=== PATIENT | female | born 1985 | race Caucasian/White ===

== ENCOUNTER → 2017-03-27 15:27 | Outpatient (CLI) | payer SELFPAY ==
[2017-03-27 18:50] LABS: Group B Strep DNA By PCR Negative (Negative); Internal Control PASS; Probe Check PASS; Specimen Processing Control PASS
== END ==
PROVIDERS: Visit Provider Obstetrics & Gynecology
DX: Z36.85 Encounter for antenatal screening for Streptococcus B (principal)
CPT/HCPCS: 87081; 87653

== ENCOUNTER 2017-04-21 20:30 | Inpatient (IN) | payer SELFPAY ==
[2017-04-21 20:55] VITALS: BMI 28.4
[2017-04-21] MEDS: Lactated Ringers 1,000 ML 50 ML IV ×2 (21:10→22:09)
[2017-04-21 21:25] LABS: Hematocrit 33.4 % (37-47); Hemoglobin 11.3 g/dl (12.0-15.0); Mean Corp Hgb Conc 33.8 g/gl (32-36); Mean Corpuscular Hgb 31.7 pg (27.0-32.0); Mean Corpuscular Volume 93.8 fL (81-99); Mean Platelet Vol. 8.9 fl (6.2-12.0); Platelet Count 207 K/mm3 (150-450); RBC Distribution Width CV 13.4 % (11.6-14.6); RBC Distribution Width SD 45.9 fl (35.1-43.9); Red Blood Count 3.56 M/mm3 (4.2-5.4); Scan Indicated on CBC? Y/N NO; White Blood Count 9.1 K/mm3 (4.4-11.0)
[2017-04-21] MEDS: fentaNYL-bupivacaine (epidural) 100 ML BAG EPIDURAL (22:53)
[2017-04-22] MEDS: Oxytocin 30 units/NS 500 ml 30 UNITS/500 ML IV.SOLN IV (01:03)
[2017-04-22] MEDS: Lactated Ringers 1,000 ML 50 ML IV ×3 (02:34→12:28)
[2017-04-22] MEDS: fentaNYL-bupivacaine (epidural) 100 ML BAG EPIDURAL ×3 (03:04→13:13)
--- NOTE | 2017-04-22 08:36 | PCM.PROGNOTE ---
Subjective: Comfortable with epidural. Objective: Afeb VSS. FHR overall Cat 1 with few variable decelerations but not deep.. - Physical Exam General: Alert, Oriented x3, Cooperative, No apparent distress Lungs: Clear to auscultation, Normal air movement Cardiovascular: Regular rate, Regular Rhythm Abdomen: Soft, Non Tender, Non-Distended, Gravid, Appropriate for Gestational Age Extremities: No edema, No Calf Tenderness Skin: No rashes Psych/Mental Status: Normal Affect Comment: CE 6-7 70% -2 Weight: 145 lb 8.081 oz Body Mass Index (BMI) 28.4 Intake and Output for Last 24 Hours 04/20/17 04/21/17 04/22/17 23:59 23:59 23:59 Intake Total 3990 / 3990 Output Total 1900 / 1900 Balance 2089 / 2089 Laboratory Tests Past 24 Hrs 04/21/17 04/21/17 21:05 21:05 WBC 9.1 RBC 3.56 L Hgb 11.3 L Hct 33.4 L MCV 93.8 MCH 31.7 MCHC 33.8 RDW 13.4 RDW Differential 45.9 H Plt Count 207 MPV 8.9 Blood Type O POSITIVE Antibody Screen NEGATIVE Medical Necessity - Tobacco Use Smoking Status: Never smoker Tobacco Use: Non-smoker Assessment/Plan SROM yesterday at 1630. Labor augmented by pitocin. Now making some cervical change. Expect .
--- NOTE | 2017-04-22 12:25 | PCM.PN.OB ---
Subjective: Now more comfortable since epidural redosed. Objective: Afeb VSS. FHR tracing now Cat 1. - Physical Exam General: Alert, Oriented x3, Cooperative, No apparent distress Lungs: Clear to auscultation, Normal air movement Cardiovascular: Regular rate, Regular Rhythm Abdomen: Soft, Non Tender, Non-Distended, Gravid, Appropriate for Gestational Age Comment: CE anterior lip 0 station +1 with pushing Weight: 145 lb 8.081 oz Body Mass Index (BMI) 28.4 Intake and Output for Last 24 Hours 04/20/17 04/21/17 04/22/17 23:59 23:59 23:59 Intake Total 3990 / 3990 Output Total 1900 / 1900 Balance 2089 / 2089 Laboratory Tests Past 24 Hrs 04/21/17 04/21/17 21:05 21:05 WBC 9.1 RBC 3.56 L Hgb 11.3 L Hct 33.4 L MCV 93.8 MCH 31.7 MCHC 33.8 RDW 13.4 RDW Differential 45.9 H Plt Count 207 MPV 8.9 Blood Type O POSITIVE Antibody Screen NEGATIVE Medical Necessity - Tobacco Use Smoking Status: Never smoker Tobacco Use: Non-smoker Assessment/Plan Has now progressed to FD. Now than pitocin is off FHR tracing improved with fewer decelerations during contractions. Will try pushing past anterior lip in 20-30 minutes.
[2017-04-22] MEDS: Oxytocin 30 units/NS 500 ml 30 UNITS/500 ML IV.SOLN 334 UNITS IV (15:00)
--- NOTE | 2017-04-22 15:13 | PCM.OB.VAG ---
- Problem List (1) Active labor at term Status: Acute Vaginal Delivery Maternal Presentation: Active Labor Presents at 39w6d ega with SROM at 1630 on 04/21/17. Fluid reported clear. Uncomplicated . Amniotic Membrane Rupture Type: Spontaneous at home Rupture of Membrane time: 1630 Amniotic Fluid Description: Clear Final ALEXANDR: 04/23/17 Final ALEXANDR Source: US <20 weeks Gestational age: 39 Weeks and 6 Days Date of Procedure: 04/22/17 Pre-Operative Diagnosis: Labor Post-Operative Diagnosis: same Surgery/ Procedure Performed: Spontaneous Vaginal Delivery, Vacuum Assisted Vaginal Delivery Anesthesiologist: Preston Viera Type of Anesthesia: Epidural Description of Procedure: Crystal dilated slowly from 2-3 cm to 6-7 cm then seemed to arest but then over 5 hours progressed to 9cm-anterior lip. With pushing efforts I was able to reduce the cervix but the cervix would return by the next contraction. Although the vertex was above +2 station decision was made to apply to Kiwi vacuum to apply gentle traction to allow the head to pass the cervix. Over one contraction with pushing efforts the head was delivered to the perineum. The Kiwi was removed and with pushing during the next contraction the vertex was delivered. There was a tight nuchal cord which was clamped and cut prior to delivery. The remainder of the delivery was unremarkable. The Placenta was delivered spontaneously intact with a centrally located 3VC. The uterus contracted well after delivery. Inspection revealed an intact cervix, upper and lower vagina, and perineum. Presentation: Vertex Placental Delivery Description: Spontaneous Placenta Disposition: [facility] Percentage of Placenta Abruption: 0 Cord Vessel Description: 3 Vessels Cord Entanglement: Around neck x 1, tight Drain: Sloan to straight drain Estimated Blood Loss: 200cc A gender: Female (1 minute): 8 (5 minute): 9 Episiotomy Description: None Laceration: None Medications given after delivery: IV Pitocin Complications: None
--- NOTE | 2017-04-22 15:24 | DCINST_ITS ---
Discharge Diet: No Restrictions Discharge Activity: Return to Normal Activity, May Drive, May Shower Return to work on:: 06/22/17 May shower in (days): 0 May resume sexual activity in: 4-6 weeks Call your doctor if your incision/area has: Sudden Increased Bleeding, Increased Pain/ Swelling, Increased Redness, Foul Smelling Discharge Call your doctor if you observe: Fever of 101 or Higher, Inability to urinate, Inability to have a bowel movement, Using more than one pad per hour, Shortness of breath, Chest pain, Calf discomfort, Uncontrolled pain Cleanse incision/area with: Soap & Water Additional Instructions: If you experience any of the following, contact your healthcare provider. * Bleeding that soaks a pad every hour for 2 hours * Fever 100.4 or higher * Unrelieved incision or abdominal pain * Swelling, redness, discharge or bleeding from your incision or episiotomy site * Your incision begins to separate * Problems urinating (including inability to urinate or burning while urinating) . * Visual changes * Severe headache * Flu-like symptoms * Pain or redness in one of both of your breasts * Pain, warmth, tenderness or swelling in your legs, especially the calf area * Frequent nausea and vomiting * Symptoms of depression or anxiety If you experience any of the following, call 911 or go to the nearest Emergency Room. * Chest pain * Problems breathing * Seizure activity * Partial or complete paralysis of a body part, slurred speech, weakness or drooping of the face, or a sudden inability to walk or hold your balance Allergies/Adverse Reactions: Allergies No Known Allergies Allergy (Verified 04/21/17 20:56) Medications to take at Discharge Vits [Prenatabs FA ] 1 tablet PO DAILY 04/21/17 Ibuprofen [Motrin] 800 mg PO TID PRN PRN #30 tab 04/22/17 The following prescriptions were given: Ibuprofen [Motrin] 800 mg PO TID PRN PRN #30 tab PRN Reason: pain or cramping Please Follow Up With: Jeana Hidalgo MD When: 6 weeks Primary Care Physician: Chavez Lora MD [Primary Care Provider] - Proposed Discharge Date: 04/24/17
[2017-04-22] MEDS: Oxytocin 30 units/NS 500 ml 30 UNITS/500 ML IV.SOLN 167 UNITS IV (15:30)
--- NOTE | 2017-04-22 16:32 | NURSING ---
Pt never was complete dilation, Dr. Aleman used Kiwi with contraction to get baby past anterior lip x1 pull. And pt pushed baby the rest of the way until delivery.
[2017-04-22] MEDS: Ibuprofen 600 MG Tablet PO ×2 (16:38→22:31)
[2017-04-22] MEDS: 0.9% Saline Lock 10 ML Syringe IV (16:39)
[2017-04-22 17:00] VITALS: BP 126/67; PULSE 87; RESP 18; TEMP 37.1
[2017-04-22] MEDS: Acetaminophen 500 MG Tablet 1000 MG PO (19:16)
[2017-04-22 20:15] VITALS: BP 113/71; PULSE 94; RESP 18; TEMP 36.7; O2SAT 100
[2017-04-22 23:36] VITALS: BP 125/50; PULSE 75; RESP 18; TEMP 36.8; O2SAT 100
[2017-04-23] MEDS: Acetaminophen 500 MG Tablet 1000 MG PO ×2 (02:16→10:53)
[2017-04-23 05:12] VITALS: BP 120/63; PULSE 75; RESP 18; TEMP 36.7; O2SAT 100
[2017-04-23] MEDS: Ibuprofen 600 MG Tablet PO ×2 (06:41→16:55)
--- NOTE | 2017-04-23 07:12 | PCM.PN.OB ---
Patient Problems: Active and Suspected Problems Active labor at term (Acute) Subjective: Some soreness and cramping but not severe. Bleeding light. Breast feeding. Objective: Afeb VSS - Physical Exam General: Alert, Oriented x3, Cooperative, No apparent distress Lungs: Clear to auscultation, Normal air movement Cardiovascular: Regular rate, Regular Rhythm Abdomen: Soft, Non Tender, Non-Distended, - - Fundus nontender Extremities: No edema Skin: No rashes Neurological: Neuro grossly intact Psych/Mental Status: Normal Affect Comment: Lochia normal Vital Signs Temp Pulse Resp BP Pulse Ox 98.0 F 75 18 120/63 100 04/23/17 05:12 04/23/17 05:12 04/23/17 05:12 04/23/17 05:12 04/23/17 05:12 Oxygen Delivery Method Room Air Weight: 145 lb 8.081 oz Body Mass Index (BMI) 28.4 Intake and Output for Last 24 Hours 04/21/17 04/22/17 04/23/17 23:59 23:59 23:59 Intake Total 6682 / 6682 Output Total 6000 / 6000 900 / 900 Balance 682 / 682 -900 / -900 Medical Necessity - Tobacco Use Smoking Status: Never smoker Tobacco Use: Non-smoker Assessment/Plan Active and Suspected Problems Active labor at term (Acute) Doing well on PP day#1. May consider discharge home later today. Home going instructions and warnings given.
--- NOTE | 2017-04-23 07:14 | PCM.DC.SUM ---
Discharge Date and Diagnosis - Problem List Patient Problems: Active and Suspected Problems Active labor at term (Acute) Date of Admission: 04/21/17 Date of Discharge: 04/23/17 - Primary Discharge Diagnosis Active and Suspected Problems Active labor at term (Acute) Hospital Course and Treatment Consultations 04/21/17 20:57 Consult: Anesthesia Routine Comment: Reason For Exam: LABOR Operations: None Procedures: - - Epidural, Summary of Care Provided: The patient is a 31 year old F admitted at 39w6d ega with SROM. Made slow progress to FD then pushed and with minor assistance with the Kiwi delivered a live female without complication. Post course unremarkable. Discharged home on PP day#1.[] Discharge Diet: No Restrictions Discharge Activity: Return to Normal Activity, May Drive, May Shower Return to work on:: 06/22/17 May shower in (days): 0 May resume sexual activity in: 4-6 weeks Call your doctor if your incision/area has: Sudden Increased Bleeding, Increased Pain/ Swelling, Increased Redness, Foul Smelling Discharge Call your doctor if you observe: Fever of 101 or Higher, Inability to urinate, Inability to have a bowel movement, Using more than one pad per hour, Shortness of breath, Chest pain, Calf discomfort, Uncontrolled pain Cleanse incision/area with: Soap & Water Home Medications: Medications to take at Discharge Vits [Prenatabs FA ] 1 tablet PO DAILY 04/21/17 Ibuprofen [Motrin] 800 mg PO TID PRN PRN #30 tab 04/22/17 Following Prescrptions Were Given to Patient: Ibuprofen [Motrin] 800 mg PO TID PRN PRN #30 tab PRN Reason: pain or cramping Primary Care Physician: Chavez Lora MD [Primary Care Provider] - Please Follow Up With: Jeana Hidalgo MD When: 6 weeks Disposition: Home Minutes spent on discharge:: 15 Patient Condition:: Good Medical Necessity - Tobacco Use Smoking Status: Never smoker Tobacco Use: Non-smoker Meaningful Use Info Meaningful Use Diagnoses (Choose all that apply): None applicable
[2017-04-23 08:20] VITALS: BP 108/58; PULSE 78; RESP 16; TEMP 36.2; O2SAT 95
[2017-04-23] MEDS: Prenatal Vits Tablet 1 TABLET PO (09:33)
[2017-04-23 11:54] VITALS: BP 120/57; PULSE 77; RESP 16; TEMP 36.3; O2SAT 98
[2017-04-23 13:01] LABS: Hematocrit 33.7 % (37-47); Hemoglobin 11.3 g/dl (12.0-15.0); Mean Corp Hgb Conc 33.5 g/gl (32-36); Mean Corpuscular Hgb 32.3 pg (27.0-32.0); Mean Corpuscular Volume 96.3 fL (81-99); Mean Platelet Vol. 9.1 fl (6.2-12.0); Platelet Count 234 K/mm3 (150-450); RBC Distribution Width CV 13.4 % (11.6-14.6); RBC Distribution Width SD 44.6 fl (35.1-43.9); White Blood Count 15.1 K/mm3 (4.4-11.0)
[2017-04-23 13:06] LABS: Scan Indicated on CBC? Y/N NO
[2017-04-23 16:41] VITALS: BP 130/58; PULSE 91; RESP 18; TEMP 37.3; O2SAT 100
== END 2017-04-23 19:55 | disposition home or self-care (01) | DRG 775 ==
PROVIDERS: Admitting Provider Obstetrics & Gynecology; Family Provider Family Medicine; PCP Family Medicine; Visit Provider Obstetrics & Gynecology
DX: O69.1XX0 Labor and delivery complicated by cord around neck, with compression, not applicable or unspecified (principal); O76 Abnormality in fetal heart rate and rhythm complicating labor and delivery; Z37.0 Single live birth; Z3A.39 39 weeks gestation of pregnancy
CPT/HCPCS: 59025; 59050; 76815; 85027; 86850; 86900; 99218; J7120; A4216; G0378

== ENCOUNTER → 2022-02-21 | Outpatient (CLI) | payer SELFPAY ==
[2022-02-27 18:26] LABS: HPV APTIMA, High Risk Negative (Negative)
== END | disposition home or self-care (01) ==
PROVIDERS: PCP Family Medicine; Visit Provider Student in an Organized Health Care Education/Training Program
DX: Z12.4 Encounter for screening for malignant neoplasm of cervix (principal)
CPT/HCPCS: 87624; 88175; G0145

== ENCOUNTER 2024-03-05 20:57 | Emergency (ER) | payer OTHER, SELFPAY ==
[2024-03-05 20:58] VITALS: BP 114/46; PULSE 101; RESP 14; TEMP 36.8; O2SAT 99; BMI 25.4
[2024-03-05 21:46] LABS: Absolute Lymphocyte Count 1.17 X10^3/uL (0.83-4.51); Basophil# 0.04 X10^3/uL; Basophil% 0.3 % (0-1); Eosinophil# 0.06 X10^3/uL; Eosinophils% 0.5 % (0-5); Hematocrit 35.3 % (37-47); Hemoglobin 12.1 g/dL (12.0-15.0); Lymphocyte # 1.17 X10^3/ul (0.83-4.51); Lymphocyte % 9.4 % (19-41); Mean Corp Hgb Conc 34.3 g/dL (32-36); Mean Corpuscular Hgb 30.3 pg (27.0-32.0); Mean Corpuscular Volume 88.3 fL (81-99); Mean Platelet Vol. 9.1 fl (6.2-12.0); Monocyte# 1.09 X10^3/uL; Monocyte% 8.8 % (0-10); NRBC Flagged by Analyzer 0 % (0-5); Neutrophil % 80.3 % (47-70); Platelet Count 211 K/mm3 (150-450); RBC Distribution Width CV 12.3 % (11.6-14.6); RBC Distribution Width SD 39.7 fl (35.1-43.9); White Blood Count 12.5 K/mm3 (4.4-11.0)
[2024-03-05 22:03] LABS: ALB/GLOB Ratio 0.8 RATIO (0.9-2.4); AST(SGOT) 77 U/L (15-37); Alanine Aminotransfer ALT/SGPT 107 U/L (13-56); Albumin, Serum 3.4 g/dL (3.2-5.0); Alkaline Phosphatase 85 U/L (45-117); Anion Gap 7 (5-15); BUN 14 mg/dL (7-18); BUN/Creat Ratio 9.5 RATIO (10-20); Calcium,Total 9.2 mg/dL (8.5-10.1); Chloride 106 mmol/L (98-107); Creatinine, Serum 1.48 mg/dL (0.55-1.02); EST Glomerular Filtration Rate 41 mL/min (>60); Est Glom Filt Rate - Afr Amer 50 mL/min (>60); Estimated Creatinine Clearance 40.59 ml/min; Globulin 4.5 g/dL (2.2-4.2); Glucose 112 mg/dL (74-106); Potassium 3.6 mmol/L (3.5-5.1); Protein, Total 7.9 g/dL (6.4-8.2); Sodium Level 137 mmol/L (136-145)
[2024-03-05 22:32] LABS: Mucous, Urine 0 SEEN /hpf (<or=2+); Red Blood Cells-Urine 0 SEEN /hpf (0-5)
[2024-03-05 22:41] LABS: Color, Urine Yellow (Yellow); Glucose, Dipstick Normal (Normal); Ketone-Dipstick 5 mg/dl (Negative); Leukocyte Esterase-Dipstick 25 /ul (Negative); Nitrite-Dipstick Negative (Negative); Occult Blood-Urine Negative /ul (Negative); Protein-Dipstick 15 mg/dl (Negative); Specific Gravity, Urine 1.005 (1.002-1.030); Urine Bilirubin Dipstick Negative (Negative); Urine Clarity Clear (Clear); Urine Urobilinogen Normal (Normal)
--- NOTE | 2024-03-05 22:47 | CT_ITS ---
PROCEDURE: ABDOMEN/PELVIS WITHOUT CONT REASON FOR EXAM: Left flank pain radiating to the left lower quadrant. Nausea and vomiting. TECHNIQUE: Axial CT images of the abdomen and pelvis was performed without IV contrast enhancement. Sagittal an d coronal reconstructed images were performed for better visualization of the horizontal structures. Study not targeted for the abdominal viscera. COMPARISON: None. FINDINGS: Lung bases: Trace atelectasis within the lung bases. Liver: Is mildly enlarged measuring 22.0 cm in the CC dimension. Gallbladder: No calcified gallstones are identified. Spleen: Unenhanced spleen appears within normal limits. Pancreas: No large pancreatic masses or peripancreatic inflammatory changes are seen. Adrenals: No adrenal masses are identified. Kidneys: Numerous nonobstructive renal calculi identified bilaterally, largest on the right within th e superior pole measures up to 7 mm and on the left, inferior pole measures 5 mm. Obstructing calculus within the proximal left ureter measures 7 x 5.5 mm, with associated moderate pelvocaliectasis and moderate hydronephrosis of the left kidney. No additio nal obstructing calculi seen.. Bladder: Partially decompressed. No bladder calculi are seen. Reproductive Organs: Multilobulated uterus. Bowel: No bowel obstruction is identified. [id number] amounts of fecal retention. Appendix: Normal. No periappendicular inflammatory changes. Lymph nodes: No suspicious lymph node enlargement. Vasculature: Major vascular structures are unremarkable. Peritoneum / Retroperitoneum: No ascites. No free air. Bones: Unremarkable. CT/Abdomen/Pelvis without Cont IMPRESSION: 1. 7 x 5.5 mm obstructing calculus within the proximal left ureter, with associ ated moderate pelvocaliectasis and moderate hydronephrosis of the left kidney. 2. Numerous nonobstructive renal calculi identified, bilaterally, largest on th e right measures up to 7 mm and on the left measures 5 mm. 3. Mild hepatomegaly measuring up to 22.0 cm in the CC dimension. 4. Multilobulated uterus. Suspect uterine fibroids. 5. Additional findings, as detailed above. One or more dose reduction techniques were used (e.g., Automated exposure contr ol, adjustment of the mA and/or kV according to patient size, use of iterative reconstruction technique). Reading Location: [id number]
--- NOTE | 2024-03-05 22:48 | EX.ED.DYSGE1 ---
HPI History of Present Illness Chief Complaint: Flank Pain Informant: patient and spouse/S.O. Narrative Narrative: Presents with spouse for evaluation intermittent left flank pain rating to left lower abdomen since Sunday. Saw her PCP Sunday had outpatient x-rays reported nephrolithiasis, referred to urology Dr. Srivastava to be seen this coming Sunday. No history of kidney stones. No urine symptoms of hematuria dysuria or frequency. However reported feeling feverish with a temp of 101 today she took Motrin 2 hours prior to that. Intermittent nausea none currently. No vomiting or diarrhea. Due to having a fever she came to get evaluated. No worsening pain at this time. No cough. Prior similar symptoms: No PFSH PFSH Medical History no medical history Home Medications ?Medication ?Instructions ?Recorded ?Last Taken ?Type ibuprofen 800 mg tablet 800 mg PO TID PRN PRN pain or 04/22/17 Unknown Rx cramping #30 tabs ondansetron 4 mg disintegrating 4 mg PO Q8H PRN PRN Nausea #10 tabs 03/06/24 Unknown Rx tablet oxycodone-acetaminophen 5 mg-325 1 tab PO Q6H PRN PRN Pain 3 days 03/06/24 Unknown Rx mg tablet #12 TABLETS tamsulosin 0.4 mg capsule 0.4 mg PO DAILY #7 CAPSULES 03/06/24 Unknown Rx Allergy/AdvReac Type Severity Reaction Status Date / Time No Known Allergies Allergy Verified 03/05/24 21:02 Family History no significant family his Surgical History no surgical history Social History Smoking Status: Never smoker ROS ROS ED Constitutional Constitutional ED: Reports fever(s); Denies chills or sweats ENT ENT ED: Denies sore throat Cardiovascular Cardiovascular: Denies chest pain, leg edema, palpitations or racing heartbeat Respiratory/Chest Respiratory/Chest: Denies cough, dyspnea or dyspnea on exertion Gastrointestinal Gastrointestinal: Reports abdominal pain; Denies diarrhea, nausea or vomiting Genitourinary Genitourinary ED: Denies dysuria, hematuria or urinary frequency Musculoskeletal Musculoskeletal: Reports back pain; Denies extremity pain or neck pain Integumentary Denies rash or wounds Neurologic Neurologic: Denies headache(s), paresthesias or weakness EXAM Physical Exam Const Vital Signs: 03/05/24 20:58 03/05/24 23:00 03/05/24 23:02 Temperature 98.2 F 98.5 F Temperature Source Oral Oral Pulse Rate 101 H 97 Respiratory Rate 14 16 Respiratory Effort Normal Non-Labored Respiratory Pattern Normal Blood Pressure 114/46 L 107/64 Blood Pressure Mean 68 78 Pulse Ox 99 98 Oxygen Delivery Method Room Air 03/06/24 00:00 03/06/24 01:00 03/06/24 02:00 Temperature 98.4 F 98.4 F 98.7 F Temperature Source Oral Oral Oral Pulse Rate 91 103 H 105 H Respiratory Rate 16 14 16 Respiratory Effort Respiratory Pattern Blood Pressure 114/56 L 110/72 105/62 Blood Pressure Mean 75 84 76 Pulse Ox 100 98 97 Oxygen Delivery Method Room Air Room Air Room Air 03/06/24 03:15 Temperature 98 F Temperature Source Pulse Rate 61 Respiratory Rate 16 Respiratory Effort Respiratory Pattern Blood Pressure 125/75 H Blood Pressure Mean 91 Pulse Ox 100 Oxygen Delivery Method Positive well nourished and well developed General Appearance ED: well developed and NAD HEENT Reports moist mucous membranes normocephalic and atraumatic Eyes General Eye ED: Yes normal appearance of both eyes Neck full ROM Chest Wall Chest: Negative for tenderness Resp normal respiratory effort and normal air movement Effort and Inspection: symmetric chest movement; Negative for respiratory distress Cardio regular rate, regular rhythm and no murmurs Peripheral Pulses: pulses 2+ throughout GI normal to inspection, nondistended, normoactive bowel sounds and non-tender Palpation: Negative for guarding or rebound tenderness present Back/Spine no CVA tenderness Extremity normal to inspection General Extremety ED: Negative for edema or tenderness General Extremity: Negative for edema Neuro oriented x3 and no sensory deficits noted Sensorium / Orientation: awake and alert Skin no rashes or lesions noted and no wounds MDM MDM MDM Narrative Medical decision making narrative: Interventions / MDM: Differential diagnosis: Urolithiasis, left renal colic, renal sufficiency Diagnosis considered but do not suspect: N/A My EKG interpretation: N/A Imaging independently reviewed and interpreted by myself: CT abdomen pelvis: 7 mm proximal left ureteral stone with hydronephrosis. External documents reviewed: N/A Test considered but not ordered:N/A ED course: No current pain at this time. Nursing protocol obtain labs noted white count 12.5 creatinine 1.48 with no old for comparison. She is given IV fluids. Will obtain CT scan for further evaluation. Urine with only 25 leukocytes no other findings. Urine culture sent. CT scan with 7 mm proximal left ureteral stone with obstruction. 0035: Reevaluate patient, reports pain is increasing will dose with morphine will start Tamiflu. Will discuss with urology. 0120: Pain controlled at this time. Awaiting callback from urology. 0305: Still waiting for callback from urology who clinically was feeling better. She is nontoxic. Discussed the 7 mm stone less likely the past. She has an appointment on Sunday with urology Dr. Srivastava. 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 I discussed with her we will continue Tamiflu, Percocet as needed Zofran as needed. Plan to keep her follow-up with strict return precautions. Will continue to plan on relaying follow-up if urology calls back. All questions were answered. Re-evaluation: stable Disposition discussed with patient/family/significant other: Patient significant other Case discussed with consulting clinician: N/A This note was generated with [employer] dictation software. It may contain incorrect words, spelling, and punctuation that were not noted in checking the note before signing. Lab Data Attestation: I reviewed the patient's lab results. Labs: Laboratory Results - last 24 hr 03/05/24 03/05/24 03/05/24 21:36 22:25 23:06 WBC 12.5 H RBC 4.00 L Hgb 12.1 Hct 35.3 L MCV 88.3 MCH 30.3 MCHC 34.3 RDW Std Deviation 39.7 RDW Coeff of Karla 12.3 Plt Count 211 MPV 9.1 Immature Gran % (Auto) 0.700 Neut % (Auto) 80.3 H Lymph % (Auto) 9.4 L Dade % (Auto) 8.8 Eos % (Auto) 0.5 Baso % (Auto) 0.3 Absolute Neuts (auto) 10.0 H Absolute Lymphs (auto) 1.17 Nucleated RBC % 0 Sodium 137 Potassium 3.6 Chloride 106 Carbon Dioxide 24.0 Anion Gap 7 BUN 14 Creatinine 1.48 H Estim Creat Clear Calc 40.59 Est GFR (MDRD) Af Amer 50 L Est GFR (MDRD) Non-Af 41 L BUN/Creatinine Ratio 9.5 L Glucose 112 H Calcium 9.2 Total Bilirubin 0.50 AST 77 H ALT 107 H Alkaline Phosphatase 85 Total Protein 7.9 Albumin 3.4 Globulin 4.5 H Albumin/Globulin Ratio 0.8 L Urine Color Yellow Urine Clarity Clear Urine pH 6.0 Ur Specific [place] 1.005 Urine Protein 15 H Urine Glucose (UA) Normal Urine Ketones 5 H Urine Occult Blood Negative Urine Nitrite Negative Urine Bilirubin Negative Urine Urobilinogen Normal Ur Leukocyte Esterase 25 H Urine RBC 0 SEEN Urine WBC 0-5 SEEN Ur Squamous Epith Cells 0-5 SEEN Urine Bacteria RARE Urine Mucus 0 SEEN Urine Test Negative Radiography Diagnostic Testing: Clinical Impression(s) from Imaging Studies Abdomen/Pelvis CT 03/05/24 22:47 IMPRESSION: 1. 7 x 5.5 mm obstructing calculus within the proximal left ureter, with associated moderate pelvocaliectasis and moderate hydronephrosis of the left kidney. 2. Numerous nonobstructive renal calculi identified, bilaterally, largest on the right measures up to 7 mm and on the left measures 5 mm. 3. Mild hepatomegaly measuring up to 22.0 cm in the CC dimension. 4. Multilobulated uterus. Suspect uterine fibroids. 5. Additional findings, as detailed above. One or more dose reduction techniques were used (e.g., Automated exposure control, adjustment of the mA and/or kV according to patient size, use of iterative reconstruction technique). Reading Location: [facility] Discharge Plan Triage Chief Complaint: Flank Pain Other Complaint: Fever ED Provider: Shekhar Holland Dx/Rx/DC Orders Clinical Impression: Urolithiasis, Renal insufficiency, Kidney stone on left side Instructions: ED Kidney Stone with Pain Prescriptions: New oxycodone-acetaminophen 5-325 mg tablet 1 tab PO Q6H PRN PRN (Reason: Pain) 3 Days Qty: 12 0RF ondansetron 4 mg tablet,disintegrating 4 mg PO Q8H PRN PRN (Reason: Nausea) Qty: 10 0RF tamsulosin 0.4 mg capsule 0.4 mg PO DAILY Qty: 7 0RF No Action ibuprofen 800 MG tablet 800 mg PO TID PRN PRN (Reason: pain or cramping) Qty: 30 1RF Primary Care Provider: Tammi Romo Referrals: James Srivastava MD [Med Staff - Active Staff] - Keep Lakia appointment Chavez Lora MD [Non-Staff] - Activity Restrictions/Additional Instructions: You have a 7 mm proximal stone on the left side. Your creatinine 1.48. Avoid ibuprofen at this time. Use Zofran and Percocet as needed. Take Flomax daily. Follow-up with Dr. Serrano as scheduled. If you develop worsening symptoms not controlled with medications, return to ED for reevaluation. Print Language: Ukrainian Disposition Disposition: Home, Self Care Discharge Date/Time: 03/06/24 03:19
[2024-03-05] MEDS: 0.9% Normal Saline (1000mL) 1,000 ML 999 ML IV (22:58)
[2024-03-05 23:00] VITALS: BP 107/64; PULSE 97; RESP 16; TEMP 36.9; O2SAT 98
[2024-03-05 23:24] LABS: Internal QC Validated? YES +Cl - CLEAR BKGD; Pregnancy, Urine Negative Negative
[2024-03-05 23:28] LABS: Bacteria RARE /hpf (None Seen); Squamous Epithelial Cells - UA 0-5 SEEN /hpf (5-10); White Blood Cells 0-5 SEEN /hpf (0-5)
[2024-03-06] VITALS: BP 114/56; PULSE 91; RESP 16; TEMP 36.9; O2SAT 100
[2024-03-06] MEDS: Tamsulosin HCl 0.4 MG Capsule PO (00:46)
[2024-03-06] MEDS: Morphine 4 MG/ML Syringe IV (00:46)
[2024-03-06 01:00] VITALS: BP 110/72; PULSE 103; RESP 14; TEMP 36.9; O2SAT 98
[2024-03-06 02:00] VITALS: BP 105/62; PULSE 105; RESP 16; TEMP 37.1; O2SAT 97
[2024-03-06 03:15] VITALS: BP 125/75; PULSE 61; RESP 16; TEMP 36.6; O2SAT 100
== END 2024-03-06 03:19 | disposition home or self-care (01) ==
PROVIDERS: Emergency Provider Emergency Medicine; Visit Provider Emergency Medicine
DX: N13.2 Hydronephrosis with renal and ureteral calculous obstruction (principal); R50.9 Fever, unspecified
CPT/HCPCS: 74176; 80053; 81001; 81025; 85025; 87086; 96361; 96374; 99285; A4216

== ENCOUNTER 2024-03-07 16:42 | Observation (INO) | payer SELFPAY ==
[2024-03-07 16:22] VITALS: BMI 25.0
[2024-03-07 17:01] VITALS: BP 113/67; PULSE 100; RESP 18; TEMP 37.6; O2SAT 96
[2024-03-07] MEDS: Lactated Ringers 1,000 ML 125 ML IV (17:41)
[2024-03-07 18:02] LABS: Absolute Lymphocyte Count 0.91 X10^3/uL (0.83-4.51); Basophil# 0.03 X10^3/uL; Basophil% 0.4 % (0-1); Eosinophil# 0.03 X10^3/uL; Eosinophils% 0.4 % (0-5); Hematocrit 32.2 % (37-47); Lymphocyte # 0.91 X10^3/ul (0.83-4.51); Lymphocyte % 11.9 % (19-41); Mean Corp Hgb Conc 34.2 g/dL (32-36); Mean Corpuscular Hgb 30.2 pg (27.0-32.0); Mean Corpuscular Volume 88.5 fL (81-99); Monocyte% 9.1 % (0-10); NRBC Flagged by Analyzer 0 % (0-5); Neutrophil # 5.97 X10^3/uL (2.7-7.7); Neutrophil % 77.9 % (47-70); Platelet Count 212 K/mm3 (150-450); RBC Distribution Width SD 39.1 fl (35.1-43.9); Red Blood Count 3.64 M/mm3 (4.2-5.4); White Blood Count 7.7 K/mm3 (4.4-11.0)
[2024-03-07 18:10] LABS: Anion Gap 6 (5-15); BUN 7 mg/dL (7-18); BUN/Creat Ratio 5.9 RATIO (10-20); Calcium,Total 9.1 mg/dL (8.5-10.1); Chloride 102 mmol/L (98-107); Creatinine, Serum 1.19 mg/dL (0.55-1.02); EST Glomerular Filtration Rate 53 mL/min (>60); Est Glom Filt Rate - Afr Amer 65 mL/min (>60); Glucose 159 mg/dL (74-106); Potassium 2.9 mmol/L (3.5-5.1); Sodium Level 136 mmol/L (136-145)
[2024-03-07] MEDS: 0.9% Saline Lock 10 ML Syringe IV (19:06)
[2024-03-07] MEDS: Ketorolac 15 MG/ML Vial IV (19:06)
[2024-03-07 21:45] VITALS: BMI 25.1
[2024-03-07 22:36] VITALS: BP 107/69; PULSE 92; RESP 16; TEMP 37.3; O2SAT 96
[2024-03-07] MEDS: Acetaminophen 500 MG Tablet 1000 MG PO (22:39)
[2024-03-07] MEDS: Cefazolin 1 GM/50 ML BAG IV (22:39)
[2024-03-08] VITALS (12 sets, daily range): BP systolic 102–120; BP diastolic 51–69; PULSE 74–91; RESP 16–18; TEMP 36.4–37.2; O2SAT 96–98
[2024-03-08 00:01] LABS: Internal QC Validated? YES +Cl - CLEAR BKGD; Pregnancy, Urine Negative Negative
[2024-03-08] MEDS: Ketorolac 15 MG/ML Vial IV (03:56)
[2024-03-08] MEDS: Cefazolin 1 GM/50 ML BAG IV (06:41)
[2024-03-08] MEDS: Acetaminophen 500 MG Tablet 1000 MG PO ×2 (06:43→14:51)
--- NOTE | 2024-03-08 07:58 | PCM.PRE.AN2 ---
ASA Classification* ASA Classification ASA Classification: 2 Assessment & Plan Anesthesia* Anesthesia Assessment Anesthesia Assessment: Discussed sedation and/or anesthesia options, risks, benefits, and alternatives with patient/parents/legal guardian/POA. Questions invited. The patient/parents/legal guardian/POA seems to understand and agrees to proceed with anesthesia plan. Reviewed the physical assessment, medical history, allergy history and patient home medications list prior to surgery/procedure/anesthetic and documented any changes. Performed airway and anesthesia risk assessments. Anesthesia Type Anesthesia Type: General Anesthesia Focused Assessment* Temperature: 98.2 F Pulse Rate: 83 Blood Pressure: 118/64 Respiratory Rate: 16 Pulse Ox: 98 Airway Assessment Mouth opens: >3 cm Mallampati Score: II Focused Labs Anesthesia Preop lab: CBC WBC 7.7 K/mm3 (4.4-11.0) 03/07/24 17:39 03/07/24 RBC 3.64 M/mm3 (4.2-5.4) L 03/07/24 17:39 03/07/24 Hgb 11.0 g/dL (12.0-15.0) L 03/07/24 17:39 03/07/24 Hct 32.2 % (37-47) L 03/07/24 17:39 03/07/24 Plt Count 212 K/mm3 (150-450) 03/07/24 17:39 03/07/24 CHEMISTRY Potassium 2.9 mmol/L (3.5-5.1) L 03/07/24 17:39 03/07/24 Sodium 136 mmol/L (136-145) 03/07/24 17:39 03/07/24 BUN 7 mg/dL (7-18) 03/07/24 17:39 03/07/24 Creatinine 1.19 mg/dL (0.55-1.02) H 03/07/24 17:39 03/07/24 Glucose 159 mg/dL (74-106) H 03/07/24 17:39 03/07/24 TSH 0.72 uIU/mL (0.358-3.74) 11/17/16 12:10 11/17/16 COAG Urine Test Negative Negative 03/07/24 23:06 03/07/24 Pre-Assessment Diagnosis/Proposed Procedure Planned Operative Procedure(s): Cystoscopy, stent placement, possible laser stone Anesthesia History Anesthesia History - pharmacology associate: Anesthesia History - pharmacology associate Hx Hospitalization Any Problems With Anesthesia No 03/07/24 21:45 Cholinesterase deficiency No 03/07/24 21:45 You/Your Family Experience No 03/07/24 21:45 fever (hyperthermia) with Relationship Recent Exposure to Contagious No 03/07/24 21:45 Disease Does patient have nerve No 03/07/24 21:45 stimulator Patient instructed to have device shut off --Does patient have Pacemaker No 03/07/24 21:45 or ICD? When Was Last Pacemaker Check QUESTION #4 FULL TEXT: You/Your Family Experience fever (hyperthermia) with Anesthesia Last Oral Intake Last Oral intake: Last Oral Intake NPO since 00:00 03/07/24 21:45 Meds taken in AM with sips of Yes 03/07/24 21:45 water? Meds patient instructed to Tylenol 1000 mg 03/07/24 21:45 take am of surgery 0640 PONV PONV - pharmacology associate: PONV - pharmacology associate Female HX of Motion Sickness HX of N/V After Surgery Non-Smoker Duration of Surgery greater than 60 minutes Number of Risk Factors PONV Score Height & Weight Height & Weight: Anesthesia: Height & Weight Height 4 ft 11.84 in 03/07/24 21:45 Weight: 58 kg 03/07/24 21:45 Body Mass Index (BMI) 25.1 03/07/24 21:45 Respiratory Assessment Respiratory Assessment - pharmacology associate: Respiratory Tract Infection Hx - pharmacology associate Hx Respiratory Tract Infection No 03/07/24 21:45 STOP Sleep Apnea STOP Sleep Apnea - pharmacology associate: STOP Sleep Apnea - pharmacology associate Hx Hypertension No 03/07/24 16:26 Hx Sleep Apnea No 03/07/24 16:26 CPAP BIPAP Do you snore loudly (louder No 03/07/24 16:26 than talking or can be heard Do you often feel tired/ No 03/07/24 16:26 fatigued/ sleepy during daytime? Has anyone observed you stop No 03/07/24 16:26 breathing during sleep? STOP Results Negative 03/07/24 16:26 QUESTION #5 FULL TEXT : Do you snore loudly (louder than talking or can be heard through closed doors)? Tobacco Use History Tobacco Use History - pharmacology associate: Tobacco Use History - pharmacology associate Tobacco Use Smoking Status Never smoker 03/07/24 16:26 Hx Tobacco Use No 03/07/24 16:26 Years Smoking Packs Smoked per Day Smoking Cessation Date was within the last 15 years Hx Smoking Cessation Date Hx Smoking Cessation Counseling Hematologic Medial History Hematologic Hx - pharmacology associate: Hematologic Medical Hx - auto roller Hx of Blood Transfusion Yes 03/07/24 16:26 Hx of Transfusion in last 3 No 03/07/24 16:26 Months Date of Last Transfusion (if within last 3 months) Ever experience any problems No 03/07/24 16:26 with transfusion(s)? 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 confused, unrespo /Reproduction History /Reproductive History - pharmacology associate: /Reproductive Hx- pharmacology associate Hx Now No 03/07/24 21:45 Gestational Age (in weeks): EDC: Hx Hx Para Hx Section SAB No 03/07/24 21:45 Active Medications Active Medications: Current Medications Generic Name Dose Route Start Last Admin Trade Name Freq PRN Reason Stop Dose Admin Acetaminophen 1,000 mg 03/07/24 22:00 03/08/24 06:43 Acetaminophen 500 Mg Tablet PO 1,000 mg Q8 KOBE Administration Sodium Chloride 100 mls @ 15 mls/hr 03/07/24 16:26 IV .Q6H40M PRN Saline Flush Sodium Chloride 100 mls @ 15 mls/hr 03/07/24 16:26 IV .Q6H40M PRN Additional IVPB Infusion Cefazolin Sodium 1 gm in 50 mls @ 100 mls/hr 03/07/24 22:00 03/08/24 06:41 IV 100 mls/hr Q8 KOBE Administration Ketorolac Tromethamine 15 mg 03/07/24 16:42 03/08/24 03:56 Ketorolac 15 Mg/Ml Vial IV 03/12/24 16:46 15 mg Q6H PRN PRN Administration Pain Score 1-10 Morphine Sulfate 2 - 4 mg 03/07/24 16:42 Morphine 2 Mg/Ml Syringe IV Q3H PRN PRN Pain Score 6-10 Ondansetron HCl 4 mg 03/07/24 16:42 Ondansetron 4 Mg/2 Ml Vial IV Q8H PRN PRN NAUSEA/VOMITING Oxycodone HCl 10 mg 03/07/24 16:42 Oxycodone 5 Mg Tablet PO Q4H PRN PRN Pain Score 4-10 Sodium Chloride 10 - 40 ml 03/07/24 16:26 03/07/24 19:06 0.9% Saline Lock 10 Ml Syringe IV 10 ml UD PRN Administration SALINE FLUSH PFSH Medical History Kidney stones Kidney disease Non-smoker Home Medications ?Medication ?Instructions ?Recorded ?Last Taken ?Type oxycodone-acetaminophen 5 mg-325 1 tab PO Q6H PRN PRN Pain 3 days 03/06/24 Unknown Rx mg tablet #12 TABLETS tamsulosin 0.4 mg capsule 0.4 mg PO DAILY #7 CAPSULES 03/06/24 Unknown Rx Allergy/AdvReac Type Severity Reaction Status Date / Time No Known Allergies Allergy Verified 03/07/24 16:34 Social History Smoking Status: Never smoker Review of Systems (Anesthesia) ROS Narrative System reviewed and no additional complaints, except as documented.
--- NOTE | 2024-03-08 08:09 | HP.PCM_ITS ---
HPI - General General Date of Admission: 03/07/24 Date of Service: 03/08/24 Chief Complaint: Left flank pain HPI Narrative AMAURY MORALES, is a 38 F who presents with uncontrolled left flank pain due to a kidney and ureteral stone with hydronephrosis that she was diagnosed with 4 days ago. She has been having intermittent fevers to 101 at home. She also is having some nausea. PFSH Medical History Kidney stones Kidney disease Non-smoker Home Medications ?Medication ?Instructions ?Recorded ?Last Taken ?Type oxycodone-acetaminophen 5 mg-325 1 tab PO Q6H PRN PRN Pain 3 days 03/06/24 Unknown Rx mg tablet #12 TABLETS tamsulosin 0.4 mg capsule 0.4 mg PO DAILY #7 CAPSULES 03/06/24 Unknown Rx Allergy/AdvReac Type Severity Reaction Status Date / Time No Known Allergies Allergy Verified 03/07/24 16:34 Social History Smoking Status: Never smoker ROS Constitutional Constitutional: Reports fever(s); Denies chills Eyes Eyes: Reports systems reviewed and no addt'l complaints, except as documented ENT HEENT: Reports systems reviewed and no addt'l complaints, except as documented Cardiovascular Cardiovascular: Denies chest pain, dizziness or dyspnea Respiratory/Chest Respiratory/Chest: Denies chest tightness, cough or dyspnea Gastrointestinal Gastrointestinal: Reports abdominal pain and nausea; Denies vomiting Genitourinary Genitourinary: Reports flank pain, low back pain and urinary hesitancy; Denies dysuria, hematuria, urinary incontinence or urinary urgency Musculoskeletal Musculoskeletal: Reports systems reviewed and no addt'l complaints, except as documented Integumentary Integumentary: Reports systems reviewed and no addt'l complaints, except as documented Neurologic Neurologic: Reports systems reviewed and no addt'l complaints, except as documented Psychiatric Psychiatric: Reports systems reviewed and no addt'l complaints, except as documented Endocrine Endocrinology: Reports systems reviewed and no addt'l complaints, except as documented Hematologic/Lymphatic Hematologic/Lymphatic: Reports systems reviewed and no addt'l complaints, except as documented Allergic/Immunologic Allergic/Immunologic: Reports systems reviewed and no addt'l complaints, except as documented Vital Signs Vital Signs Vital Signs: 03/07/24 16:22 03/07/24 17:01 03/07/24 22:36 Temperature 99.6 F H 99.1 F Temperature Source Oral Oral Pulse Rate 100 92 Respiratory Rate 18 16 Respiratory Effort Blood Pressure 113/67 107/69 Blood Pressure Mean 82 81 Blood Pressure Source Monitor Monitor Blood Pressure Position Semi-Fowlers Semi-Fowlers Blood Pressure Location Left Arm Right Arm Pulse Ox 96 96 Oxygen Delivery Method Room Air Room Air 03/07/24 22:43 03/08/24 04:01 03/08/24 06:47 Temperature 97.5 F L 98.2 F Temperature Source Oral Oral Pulse Rate 91 83 Respiratory Rate 16 16 Respiratory Effort Normal Non-Labored Blood Pressure 120/68 118/64 Blood Pressure Mean 85 82 Blood Pressure Source Monitor Monitor Blood Pressure Position Semi-Fowlers Semi-Fowlers Blood Pressure Location Right Arm Right Arm Pulse Ox 98 98 Oxygen Delivery Method Room Air Room Air Room Air 03/08/24 07:59 Temperature 98.2 F Temperature Source Pulse Rate 83 Respiratory Rate 16 Respiratory Effort Blood Pressure 118/64 Blood Pressure Mean Blood Pressure Source Blood Pressure Position Blood Pressure Location Pulse Ox 98 Oxygen Delivery Method Weight Weight: 58 kg Body Mass Index (BMI) 25.1 Physical Exam Const alert, oriented x3 and no apparent distress General Appearance: cooperative HEENT normocephalic, head/scalp atraumatic, hearing grossly normal bilaterally, external ears normal, external nose normal and moist oral mucous membranes Eyes General Eye: normal appearance of both eyes Neck supple General: normal visual inspection and trachea midline Lymph Lymphatic: no lymphedema noted Chest inspection of chest normal Chest: symmetrical chest wall rise Resp normal respiratory effort, normal air movement and no retractions Cardio regular rate GI soft to palpation, non-distended and no masses Bladder / Kidney Exam: CVA tenderness left Back/Spine General Back: CVA tenderness left Extremity normal to inspection Skin no rashes or lesions noted, no wounds, no jaundice, no petechiae and no mottling Neuro oriented x3, CN's II-XII intact bilaterally and moves all extremities Psych mental status grossly normal, thought process normal and cooperative Results Lab / Micro Data 03/07/24 17:39 03/07/24 17:39 Labs: Laboratory Results - last 24 hr 03/07/24 17:39: WBC 7.7, RBC 3.64 L, Hgb 11.0 L, Hct 32.2 L, MCV 88.5, MCH 30.2, MCHC 34.2, RDW Std Deviation 39.1, RDW Coeff of Karla 12.0, Plt Count 212, MPV 9.0, Immature Gran % (Auto) 0.300, Neut % (Auto) 77.9 H, Lymph % (Auto) 11.9 L, [place] % (Auto) 9.1, Eos % (Auto) 0.4, Baso % (Auto) 0.4, Absolute Neuts (auto) 6.0, Absolute Lymphs (auto) 0.91, Nucleated RBC % 0, Sodium 136, Potassium 2.9 L , Chloride 102, Carbon Dioxide 28.0, Anion Gap 6, BUN 7, Creatinine 1.19 H, Estim Creat Clear Calc 50.10, Est GFR (MDRD) Af Amer 65, Est GFR (MDRD) Non-Af 53 L, BUN/Creatinine Ratio 5.9 L, Glucose 159 H, Calcium 9.1 03/07/24 23:06: Urine Test Negative Assessment & Plan Assessment/Plan (1) Urolithiasis: (2) Renal insufficiency: (3) Flank pain: (4) Hydronephrosis: PLAN: Plan Cystoscopy with left ureteral stent insertion Plan for discharge home later today Lithotripsy for stone management in approximately 2 to 3 weeks Continue supportive care
--- NOTE | 2024-03-08 08:15 | DCINST_ITS ---
Discharge Instructions Diet Discharge Diet: No restrictions Activity Discharge Activity: Return to Normal Activity Dressing / Incision Call your doctor if you observe: Fever of 101 or Higher, Inability to urinate and Inability to have a bowel movement Follow Up Care Please Follow Up With: Phuong Madrigal MD When: The office will call to make arrangements for stone management. Test Results: Test results from this visit will be discussed in further detail at your follow- up appointment, if applicable. Discharge Plan Admission Admit Date/Time: 03/07/24 16:42 Attending Provider: Phuong Madrigal Primary Care Provider: Tammi Romo Discharge Orders/Prescriptions Prescriptions: New ondansetron 8 mg tablet,disintegrating 8 mg PO Q8H PRN (Reason: nausea and vomiting) Qty: 10 0RF oxycodone-acetaminophen 5-325 mg tablet 1 tab PO Q8H PRN (Reason: pain) 3 Days Qty: 10 0RF cephalexin 500 mg capsule 500 mg PO Q12 3 Days Qty: 6 0RF phenazopyridine [Pyridium] 200 mg tablet 200 mg PO TID PRN PRN (Reason: Bladder Spasms) 7 Days Qty: 30 3RF Continued oxycodone-acetaminophen 5-325 mg tablet 1 tab PO Q6H PRN PRN (Reason: Pain) 3 Days Qty: 12 0RF Discontinued tamsulosin 0.4 mg capsule 0.4 mg PO DAILY Qty: 7 0RF Referrals / Follow Up: Tammi Romo PA [Primary Care Provider] - Disposition Disposition (needs filled in before D/C Order can be placed): Home, Self Care
--- NOTE | 2024-03-08 08:19 | OP.PCM_ITS ---
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 Type of Anesthesia: MAC RN Documented Start/Stop Times: Operation Date: 03/08/24 08:55 Case Time Anesthesia Start 03/08/24 08:37 Into Room 03/08/24 08:37 Procedure Start 03/08/24 08:49 Procedure End 03/08/24 08:56 Procedure Start Time: 08:49 Procedure Stop Time: 08:56 Select all DRAINS/GRAFTS/IMPLANTS that apply: Drains Drain details: 6 Indonesian by 20 cm JJ stent Estimated Blood Loss: <5cc Specimen collected: Yes Description of specimen(s) removed: Urine for culture Description of surgery: The patient is a 38-year-old female with obstructing urolithiasis on the left who presents for stent insertion. Informed consent was obtained. She was taken the operating room and placed on the operating room table. Anesthesia monitored the head, neck, airway, IV access and vital signs throughout the case. Once anesthesia was appropriately administered, she was placed into dorsolithotomy position was prepped and draped in usual sterile fashion. The cystoscope was inserted through the urethra under direct visualization into the urinary bladder. There was no evidence of mass, erythema, ulceration or foreign body identified within the bladder lumen or the urethra. The left ureteral orifice was identified in the correct anatomic position. It was gently cannulated with a 0.035 Glidewire which was seen under fluoroscopic visualization within the left renal pelvis. A 6 Indonesian 20 cm JJ stent was then placed over the wire with good positioning within the renal pelvis as well as the urinary bladder. The patient's bladder was emptied, the cystoscope was removed and the case was ended. She was awakened and taken to the recovery room in good condition. Surgical Findings: Left ureteral stent in good position, 6 Indonesian by 20 cm JJ Complications Complications: No Admit VTE Documentation VTE Present on Admission: Yes VTE Mechan Device Prophylaxis: SCD's VTE Pharm Prophylaxis ordered?: No Reason prophylaxis not ordered: Treatment Not Indicated
[2024-03-08] MEDS: Potassium Chloride 10mEq/100mL 10 MEQ/100 ML IV.SOLN. 100 MEQ IV BOLUS (08:30)
--- NOTE | 2024-03-08 09:00 | DCINST_ITS ---
Discharge Instructions Diet Discharge Diet: No restrictions Dressing / Incision Call your doctor if you observe: Fever of 101 or Higher, Inability to urinate and Inability to have a bowel movement Follow Up Care Please Follow Up With: Phuong Madrigal MD Test Results: Test results from this visit will be discussed in further detail at your follow- up appointment, if applicable. Discharge Plan Admission Admit Date/Time: 03/07/24 16:42 Attending Provider: Phuong Madrigal Primary Care Provider: Tammi Romo Discharge Orders/Prescriptions Prescriptions: New ondansetron 8 mg tablet,disintegrating 8 mg PO Q8H PRN (Reason: nausea and vomiting) Qty: 10 0RF oxycodone-acetaminophen 5-325 mg tablet 1 tab PO Q8H PRN (Reason: pain) 3 Days Qty: 10 0RF cephalexin 500 mg capsule 500 mg PO Q12 3 Days Qty: 6 0RF phenazopyridine [Pyridium] 200 mg tablet 200 mg PO TID PRN PRN (Reason: Bladder Spasms) 7 Days Qty: 30 3RF cephalexin 500 mg capsule 500 mg PO TID 7 Days Qty: 21 0RF Continued oxycodone-acetaminophen 5-325 mg tablet 1 tab PO Q6H PRN PRN (Reason: Pain) 3 Days Qty: 12 0RF Discontinued tamsulosin 0.4 mg capsule 0.4 mg PO DAILY Qty: 7 0RF Referrals / Follow Up: Tammi Romo PA [Primary Care Provider] - Disposition Disposition (needs filled in before D/C Order can be placed): Home, Self Care
--- NOTE | 2024-03-08 09:04 | PCM.POST.ANE ---
Anesthesia: Postop Eval I Current Vital Signs Temperature: 98.7 F Pulse Rate: 79 Blood Pressure: 107/69 Respiratory Rate: 16 Pulse Ox: 96 Assessment Airway patent: Yes Spontaneous unlabored respirations: Yes nausea: No Vomiting: No Anesthesia Complication: No Fluid Hydration Crystalloid volume administer (ml): 50 Total IV fluid infused: 50 Progress Note Anesthesia document: Postop Eval 1 completed: Yes
--- NOTE | 2024-03-08 09:05 | PCM.POSTANE2 ---
Anesthesia Postop Eval I Sum Postop Eval Completion status Anesthesia document: Postop Eval 1 completed: Yes Anesthesia Postop Eval I Summary Anesthesia Postop Eval I Summary: Anesthesia Postop Eval I: Assessment Summary Airway patent Yes 03/08/24 09:04 Spontaneous unlabored Yes 03/08/24 09:04 respirations Mental status nausea No 03/08/24 09:04 Vomiting No 03/08/24 09:04 Anesthesia Postop Eval I: Fluid Summary Crystalloid volume administer 50 03/08/24 09:04 (ml) Colloids volume administered ( ml) Blood Product volume administered (ml) Total IV fluid infused 50 03/08/24 09:04 Anesthesia Postop Eval I: Summary Notes Anesthesia Complication No 03/08/24 09:04 Anesthesia Complication Comment: Post-operative progress note Anesthesia: Postop Eval II Evaluation Mental status: Awake and Calm Pain Level: 0 nausea: No Vomiting: No Progress Note Post-operative progress note: recieved 10 meq potassium infusion intra op Complications Anesthesia Complication: No
[2024-03-08] MEDS: oxyCODONE 5 MG Tablet 10 MG PO (09:58)
--- NOTE | 2024-03-08 15:12 | NURSING ---
Pt tolerating PO diet, pain 0/10, vs stable, and post void bladder scan 48ml.
== END 2024-03-08 15:25 | disposition home or self-care (01) ==
PROVIDERS: Anesthesiology; Admitting Provider Urology; Referring Provider Urology; Visit Provider Urology
PROC: (CPT 52332; principal; 2024-03-08 08:45)
DX: N13.2 Hydronephrosis with renal and ureteral calculous obstruction (principal)
CPT/HCPCS: 52332; 00910; 36415; 76000; 80048; 81025; 85025; 87077; 87086; 87088; 87186; 96361; 96365; 96366; 96375; 96376; 99221; A4216; G0378; J2405

== ENCOUNTER → 2024-03-26 | Outpatient (CLI) | payer SELFPAY ==
[2024-03-26 10:46] LABS: Anion Gap 6 (5-15); BUN 12 mg/dL (7-18); BUN/Creat Ratio 14.6 RATIO (10-20); Calcium,Total 10.4 mg/dL (8.5-10.1); Chloride 104 mmol/L (98-107); Creatinine, Serum 0.82 mg/dL (0.55-1.02); EST Glomerular Filtration Rate 82 mL/min (>60); Est Glom Filt Rate - Afr Amer 99 mL/min (>60); Glucose 94 mg/dL (74-106); Potassium 4.2 mmol/L (3.5-5.1); Sodium Level 137 mmol/L (136-145)
== END | disposition home or self-care (01) ==
LOC: MTLAB 08:13
PROVIDERS: Anesthesiology; Referring Provider Urology; Visit Provider Urology
DX: N20.0 Calculus of kidney (principal)
CPT/HCPCS: 36415; 80048; 84132

== ENCOUNTER 2024-03-27 08:42 | Day surgery (SDC) | payer SELFPAY ==
--- NOTE | 2024-03-19 10:10 | PAT.ANESEVAL ---
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 When Was Last Pacemaker Check QUESTION #4 FULL TEXT: You/Your Family Experience fever (hyperthermia) with Anesthesia Last Oral Intake Last Oral intake: Last Oral Intake NPO since Meds taken in AM with sips of water? 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 sewing machine operator Female Yes 03/19/24 08:37 HX of Motion Sickness No 03/19/24 08:37 HX of N/V After Surgery No 03/19/24 08:37 Non-Smoker Yes 03/19/24 08:37 Duration of Surgery greater Yes 03/19/24 08:37 than 60 minutes Number of Risk Factors 3 03/19/24 08:37 PONV Score Moderate Risk 03/19/24 08:37 Height & Weight Height & Weight: Anesthesia: Height & Weight Height 4 ft 11.84 in 03/07/24 21:45 Respiratory Assessment Respiratory Assessment - zipper sewing machine operator: Respiratory Tract Infection Hx - zipper sewing machine operator Hx Respiratory Tract Infection No 03/19/24 08:37 STOP Sleep Apnea STOP Sleep Apnea - zipper sewing machine operator: STOP Sleep Apnea - zipper sewing machine operator Hx Hypertension No 03/19/24 08:37 Hx Sleep Apnea No 03/19/24 08:37 CPAP BIPAP Do you snore loudly (louder No 03/19/24 08:37 than talking or can be heard Do you often feel tired/ No 03/19/24 08:37 fatigued/ sleepy during daytime? Has anyone observed you stop No 03/19/24 08:37 breathing during sleep? STOP Results Negative 03/19/24 08:37 QUESTION #5 FULL TEXT : Do you snore loudly (louder than talking or can be heard through closed doors)? 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 Specify any problems Hx of Preganancy in last 3 No 03/19/24 08:37 Months Nurse Filling Out Transfusion DSCHRIBER 03/19/24 08:37 & Questions: Date: 03/19/24 03/19/24 08:37 Time: 08:38 03/19/24 08:37 Patient unable to answer at this time (ie. confused, unrespo /Reproduction History /Reproductive History - zipper sewing machine operator: /Reproductive Hx- zipper sewing machine operator Hx Now No 03/19/24 08:37 Gestational Age (in weeks): EDC: Hx Hx Para Hx Section SAB No 03/19/24 08:37 PFSH Medical History Wears glasses Anemia Non-smoker Home Medications ?Medication ?Instructions ?Recorded ?Last Taken ?Type acetaminophen 325 mg tablet 650 mg PO Q4H PRN pain 03/19/24 Unknown History (Tylenol) ibuprofen 600 mg tablet (IBU) 600 mg PO Q8H PRN pain 03/19/24 Unknown History Allergy/AdvReac Type Severity Reaction Status Date / Time No Known Allergies Allergy Verified 03/19/24 08:35 Surgical History (Updated 03/19/24 @ 08:42 by Stephany Espinal) Hx of cystoscopy Social History Smoking Status: Never smoker Audit: Pertinent Findings Pertinent Findings Additional pertinent findings: Potassium 2.9 on 03/07/2024 patient should be on supplemental potassium and recheck potassium on day of procedure Recommendation Anesthesia Recommendation Anesthesia recommendation: F/U recommended (Sure patient on potassium supplementation for potassium of 2.9 recheck potassium on day of procedure)
--- NOTE | 2024-03-19 12:31 | PAT.ANE_ITS ---
Pre-Assessment Diagnosis/Proposed Procedure Planned Operative Procedure(s): LEFT ESWL Anesthesia History Anesthesia History - utilization management um nurse: Anesthesia History - utilization management um nurse Hx Hospitalization Yes: 03/08/2024 03/19/24 08:37 Any Problems With Anesthesia No 03/19/24 08:37 Cholinesterase deficiency No 03/19/24 08:37 You/Your Family Experience No 03/19/24 08:37 fever (hyperthermia) with Relationship Recent Exposure to Contagious No 03/07/24 21:45 Disease Does patient have nerve No 03/19/24 08:37 stimulator Patient instructed to have device shut off --Does patient have Pacemaker or ICD? When Was Last Pacemaker Check QUESTION #4 FULL TEXT: You/Your Family Experience fever (hyperthermia) with Anesthesia Last Oral Intake Last Oral intake: Last Oral Intake NPO since Meds taken in AM with sips of water? Meds patient instructed to take am of surgery PONV PONV - utilization management um nurse: PONV - utilization management um nurse Female Yes 03/19/24 08:37 HX of Motion Sickness No 03/19/24 08:37 HX of N/V After Surgery No 03/19/24 08:37 Non-Smoker Yes 03/19/24 08:37 Duration of Surgery greater Yes 03/19/24 08:37 than 60 minutes Number of Risk Factors 3 03/19/24 08:37 PONV Score Moderate Risk 03/19/24 08:37 Height & Weight Height & Weight: Anesthesia: Height & Weight Height 4 ft 11.84 in 03/07/24 21:45 Respiratory Assessment Respiratory Assessment - utilization management um nurse: Respiratory Tract Infection Hx - utilization management um nurse Hx Respiratory Tract Infection No 03/19/24 08:37 STOP Sleep Apnea STOP Sleep Apnea - utilization management um nurse: STOP Sleep Apnea - utilization management um nurse Hx Hypertension No 03/19/24 08:37 Hx Sleep Apnea No 03/19/24 08:37 CPAP BIPAP Do you snore loudly (louder No 03/19/24 08:37 than talking or can be heard Do you often feel tired/ No 03/19/24 08:37 fatigued/ sleepy during daytime? Has anyone observed you stop No 03/19/24 08:37 breathing during sleep? STOP Results Negative 03/19/24 08:37 QUESTION #5 FULL TEXT : Do you snore loudly (louder than talking or can be heard through closed doors)? Tobacco Use History Tobacco Use History - utilization management um nurse: Tobacco Use History - utilization management um nurse Tobacco Use Smoking Status Never smoker 03/19/24 08:37 Hx Tobacco Use No 03/19/24 08:37 Years Smoking Packs Smoked per Day Smoking Cessation Date was within the last 15 years Hx Smoking Cessation Date Hx Smoking Cessation Counseling Hematologic Medial History Hematologic Hx - utilization management um nurse: Hematologic Medical Hx - scheduling clerk Hx of Blood Transfusion Yes 03/19/24 08:37 Hx of Transfusion in last 3 No 03/19/24 08:37 Months Date of Last Transfusion (if within last 3 months) Ever experience any problems No 03/19/24 08:37 with transfusion(s)? Specify any problems Hx of Preganancy in last 3 No 03/19/24 08:37 Months Nurse Filling Out Transfusion DSCHRIBER 03/19/24 08:37 & Questions: Date: 03/19/24 03/19/24 08:37 Time: 08:38 03/19/24 08:37 Patient unable to answer at this time (ie. confused, unrespo /Reproduction History /Reproductive History - utilization management um nurse: /Reproductive Hx- utilization management um nurse Hx Now No 03/19/24 08:37 Gestational Age (in weeks): EDC: Hx Hx Para Hx Section SAB No 03/19/24 08:37 PFSH Medical History Wears glasses Anemia Non-smoker Home Medications ?Medication ?Instructions ?Recorded ?Last Taken ?Type acetaminophen 325 mg tablet 650 mg PO Q4H PRN pain 01/29 Unknown History (Tylenol) ibuprofen 600 mg tablet (IBU) 600 mg PO Q8H PRN pain 0 03/19/24 Unknown History Allergy/AdvReac Type Severity Reaction Status Date / Time No Known Allergies Allergy Verified 03/19/24 08:35 Surgical History (Updated 03/19/24 @ 08:42 by Stephany Espinal) Hx of cystoscopy Social History Smoking Status: Never smoker Audit: Pertinent Findings HISTORY of Pertinent Findings History of Pertinent Findings: Additional Pertinent Findings Additional pertinent findings Potassium 2.9 on 03/07/2024 03/19/24 10:13 patient should be on supplemental potassium and recheck potassium on day of procedure Pertinent Findings Additional pertinent findings: Potassium 2.9 Dr. Madrigal aware lab from 03/07/2024 may consider repeat potassium on day of procedure Recommendation Anesthesia Recommendation Anesthesia recommendation: OPTIMIZED for anesthesia
[2024-03-27] VITALS (9 sets, daily range): BP systolic 99–125; BP diastolic 56–82; PULSE 69–98; RESP 14–18; TEMP 36.3–38.1; O2SAT 97–100
[2024-03-27 09:20] LABS: Internal QC Validated? YES +Cl - CLEAR BKGD; Pregnancy, Urine Negative Negative
[2024-03-27] MEDS: 0.9% Normal Saline (1000mL) 1,000 ML 15 ML IV (09:20)
--- NOTE | 2024-03-27 09:39 | PRE.ANES_ITS ---
ASA Classification* ASA Classification ASA Classification: 2 Assessment & Plan Anesthesia* Anesthesia Assessment Anesthesia Assessment: Discussed sedation and/or anesthesia options, risks, benefits, and alternatives with patient/parents/legal guardian/POA. Questions invited. The patient/parents/legal guardian/POA seems to understand and agrees to proceed with anesthesia plan. Reviewed the physical assessment, medical history, allergy history and patient home medications list prior to surgery/procedure/anesthetic and documented any changes. Performed airway and anesthesia risk assessments. Anesthesia Type Anesthesia Type: General History Source History Obtained from:: Patient, Chart and Significant Other (spouse) Anesthesia Focused Assessment* Temperature: 100.5 F Pulse Rate: 79 Blood Pressure: 125/66 Respiratory Rate: 16 Pulse Ox: 100 Oxygen Delivery Method: Room Air Airway Assessment Mouth opens: >3 cm Mallampati Score: I Teeth Condition: Intact Neck Range of motion (ROM): Full ROM Focused Labs Anesthesia Preop lab: CBC WBC 7.7 K/mm3 (4.4-11.0) 03/07/24 17:39 03/07/24 RBC 3.64 M/mm3 (4.2-5.4) L 03/07/24 17:39 03/07/24 Hgb 11.0 g/dL (12.0-15.0) L 03/07/24 17:39 5 Hct 32.2 % (37-47) L 03/07/24 17:39 03/07/24 Plt Count 212 K/mm3 (150-450) 03/07/24 17:39 03/07/24 CHEMISTRY Potassium 4.2 mmol/L (3.5-5.1) 03/26/24 08:16 03/26/24 Sodium 137 mmol/L (136-145) 03/26/24 08:16 03/26/24 BUN 12 mg/dL (7-18) 03/26/24 08:16 03/26/24 Creatinine 0.82 mg/dL (0.55-1.02) 03/26/24 08:16 03/26/24 Glucose 94 mg/dL (74-106) 03/26/24 08:16 03/26/24 TSH 0.72 uIU/mL (0.358-3.74) 11/17/16 12:10 COAG Urine Test Negative Negative 03/27/24 08:55 03/27/24 Pre-Assessment Diagnosis/Proposed Procedure Planned Operative Procedure(s): LEFT ESWL Anesthesia History 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 When Was Last Pacemaker Check QUESTION #4 FULL TEXT: You/Your Family Experience fever (hyperthermia) with Anesthesia Last Oral Intake Last Oral intake: Last Oral Intake NPO since 22:30 03/27/24 09:04 Meds taken in AM with sips of No 03/27/24 09:04 water? Meds patient instructed to take am of surgery PONV PONV - enterprise software developer: PONV - enterprise software developer Female Yes 03/19/24 08:37 HX of Motion Sickness No 03/19/24 08:37 HX of N/V After Surgery No 03/19/24 08:37 Non-Smoker Yes 03/19/24 08:37 Duration of Surgery greater Yes 03/19/24 08:37 than 60 minutes Number of Risk Factors 3 03/19/24 08:37 PONV Score Moderate Risk 03/19/24 08:37 Height & Weight Height & Weight: Anesthesia: Height & Weight Height 54 ft 03/27/24 09:04 Weight: 54 kg 03/27/24 09:04 Body Mass Index (BMI) 0.1 03/27/24 09:04 Respiratory Assessment Respiratory Assessment - enterprise software developer: Respiratory Tract Infection Hx - enterprise software developer Hx Respiratory Tract Infection No 03/19/24 08:37 STOP Sleep Apnea STOP Sleep Apnea - enterprise software developer: STOP Sleep Apnea - enterprise software developer Hx Hypertension No 03/19/24 08:37 Hx Sleep Apnea No 03/19/24 08:37 CPAP BIPAP Do you snore loudly (louder No 03/19/24 08:37 than talking or can be heard Do you often feel tired/ No 03/19/24 08:37 fatigued/ sleepy during daytime? Has anyone observed you stop No 03/19/24 08:37 breathing during sleep? STOP Results Negative 03/19/24 08:37 QUESTION #5 FULL TEXT : Do you snore loudly (louder than talking or can be heard through closed doors)? Tobacco Use History Tobacco Use History - enterprise software developer: Tobacco Use History - enterprise software developer Tobacco Use Non-smoker 04/23/17 07:16 Smoking Status Never smoker 03/19/24 08:37 Hx Tobacco Use No 03/19/24 08:37 Years Smoking Packs Smoked per Day Smoking Cessation Date was within the last 15 years Hx Smoking Cessation Date Hx Smoking Cessation Counseling Hematologic Medial History Hematologic Hx - enterprise software developer: Hematologic Medical Hx - can marker Hx of Blood Transfusion Yes 03/19/24 08:37 Hx of Transfusion in last 3 No 03/19/24 08:37 Months Date of Last Transfusion (if within last 3 months) Ever experience any problems No 03/19/24 08:37 with transfusion(s)? Specify any problems Hx of Preganancy in last 3 No 03/19/24 08:37 Months Nurse Filling Out Transfusion DSCHRIBER 03/19/24 08:37 & Questions: Date: 03/19/24 03/19/24 08:37 Time: 08:38 03/19/24 08:37 Patient unable to answer at this time (ie. confused, unrespo /Reproduction History /Reproductive History - enterprise software developer: /Reproductive Hx- enterprise software developer Hx Now No 03/19/24 08:37 Gestational Age (in weeks): EDC: Hx Hx Para Hx Section SAB No 03/19/24 08:37 Active Medications Active Medications: Current Medications Generic Name Dose Route Start Last Admin Trade Name Freq PRN Reason Stop Dose Admin Cefazolin Sodium 2 gm/ N/A 20 mls @ 400 mls/hr 03/27/24 10:10 IV 03/27/24 10:12 PREOP ONE Sodium Chloride 1,000 mls @ 15 mls/hr 03/27/24 09:00 03/27/24 09:20 IV 04/01/24 22:19 15 mls/hr .Q48H KOBE Administration Protocol PFSH Medical History Wears glasses Anemia Non-smoker Home Medications ?Medication ?Instructions ?Recorded ?Last Taken ?Type acetaminophen 325 mg tablet 650 mg PO Q4H PRN pain 01/29 Unknown History (Tylenol) ibuprofen 600 mg tablet (IBU) 600 mg PO Q8H PRN pain 0 03/19/24 Unknown History potassium chloride 15 mEq 15 meq PO BID 03/24/24 Unkno wn History tablet,extended release(part/cryst) (Klor-Con M) Allergy/AdvReac Type Severity Reaction Status Date / Time No Known Allergies Allergy Verified 03/27/24 09:09 Surgical History (Updated 03/19/24 @ 08:42 by Stephany Espinal) Hx of cystoscopy Social History Smoking Status: Never smoker Review of Systems (Anesthesia) ROS Narrative System reviewed and no additional complaints, except as documented.
[2024-03-27] MEDS: Cefazolin 2 GM in Syringe IV (10:30)
--- NOTE | 2024-03-27 10:52 | EX.PCM.DISCH ---
Discharge Instructions Diet Discharge Diet: No restrictions Activity Discharge Activity: Return to Normal Activity Dressing / Incision Call your doctor if you observe: Fever of 101 or Higher, Inability to urinate and Inability to have a bowel movement Follow Up Care Please Follow Up With: Phuong Madrigal MD When: The office will reach out to her to make arrangements. Test Results: Test results from this visit will be discussed in further detail at your follow-up appointment, if applicable. Discharge Plan Admission Attending Provider: Phuong Madrigal Primary Care Provider: Tammi Romo Instructions Print Language: Cam[place]onian Discharge Orders/Prescriptions Prescriptions: Continued acetaminophen [Tylenol] 325 mg tablet 650 mg PO Q4H PRN (Reason: pain) ibuprofen [IBU] 600 mg tablet 600 mg PO Q8H PRN (Reason: pain) potassium chloride [Klor-Con M15] 15 mEq tablet,ER particles/crystals 15 meq PO BID Patient Comments: STARTED 03/19/24 Referrals / Follow Up: Tammi Romo PA [Primary Care Provider] - Disposition Disposition (needs filled in before D/C Order can be placed): Home, Self Care
--- NOTE | 2024-03-27 10:53 | OP.PCM_ITS ---
Operative Report (Standard) Operative Information Date of Procedure: 03/27/24 Pre-Operative Diagnosis: Left renal stones, left proximal ureteral calculus Post-Operative Diagnosis: Same Surgery/Procedure Performed: Left renal and left ureteral extracorporeal shockwave lithotripsy workers compensation administrator: No Type of Anesthesia: General RN Documented Start/Stop Times: Operation Date: 03/27/24 10:10 Case Time Into Pre-Op 03/27/24 08:54 Out of Pre-Op 03/27/24 10:11 Anesthesia Start 03/27/24 10:14 Into Room 03/27/24 10:14 Procedure Start 03/27/24 10:28 Procedure Start Time: 10:28 Procedure Stop Time: 11:24 Select all DRAINS/GRAFTS/IMPLANTS that apply: None Estimated Blood Loss: <5cc Specimen collected: No Description of surgery: The patient is a 38-year-old female with multiple left renal stones who presents for shockwave lithotripsy having already had a cystoscopy and left ureteral stent inserted. Informed consent was obtained. The patient was taken to the operating room and placed on the lithotripsy table. Anesthesia monitored the head, neck, airway, IV access and vital signs throughout the case. Once anesthesia was appropriately administered she was aligned with the lithotripter. The large proximal ureteral calculus was treated with 2000 shocks and it was no longer visible. At this time, 2000 shocks were applied to the remaining stones in the left kidney which appeared to be fragmented at the conclusion of the case. She was then awakened and taken to the recovery room in good condition. There were no complications during this procedure. Surgical Findings: Right renal stones easily visualized. Complications Complications: No Admit VTE Documentation VTE Present on Admission: Yes VTE Mechan Device Prophylaxis: SCD's
--- NOTE | 2024-03-27 11:38 | PCM.POST.ANE ---
Anesthesia: Postop Eval I Current Vital Signs Temperature: 97.3 F Pulse Rate: 76 Blood Pressure: 114/66 Respiratory Rate: 14 Pulse Ox: 100 Oxygen Delivery Method: Simple Mask Oxygen Flow Rate (L/min): 10 Assessment Airway patent: Yes Spontaneous unlabored respirations: Yes Mental status: Awake and Calm nausea: No Vomiting: No Anesthesia Complication: No Fluid Hydration Crystalloid volume administer (ml): 1,000 Total IV fluid infused: 1,000 Progress Note Anesthesia document: Postop Eval 1 completed: Yes
[2024-03-27] MEDS: Ketorolac 15 MG/ML Vial IV (12:34)
--- NOTE | 2024-03-27 13:07 | POSTOPAN2_ITS ---
Anesthesia Postop Eval I Sum Postop Eval Completion status Anesthesia document: Postop Eval 1 completed: Yes Anesthesia Postop Eval I Summary Anesthesia Postop Eval I Summary: Anesthesia Postop Eval I: Assessment Summary Airway patent Yes 03/27/24 11:39 AUTO ELECTRICAL TECHNICIAN.HBARR Spontaneous unlabored Yes 03/27/24 11:39 AUTO ELECTRICAL TECHNICIAN.HBARR respirations Mental status Awake,Calm 03/27/24 11:39 AUTO ELECTRICAL TECHNICIAN.HBARR nausea No 03/27/24 11:39 AUTO ELECTRICAL TECHNICIAN.HBARR Vomiting No 03/27/24 11:39 AUTO ELECTRICAL TECHNICIAN.HBARR Anesthesia Postop Eval I: Fluid Summary Crystalloid volume administer 1,000 03/27/24 11:39 AUTO ELECTRICAL TECHNICIAN.HBARR (ml) Colloids volume administered ( ml) Blood Product volume administered (ml) Total IV fluid infused 1,000 03/27/24 11:39 AUTO ELECTRICAL TECHNICIAN.HBARR Anesthesia Postop Eval I: Summary Notes Anesthesia Complication No 03/27/24 11:39 AUTO ELECTRICAL TECHNICIAN.HBARR Anesthesia Complication Comment: Post-operative progress note Anesthesia: Postop Eval II Evaluation Mental status: Awake and Calm Pain Level: 1 nausea: No Vomiting: No Complications Anesthesia Complication: No
--- NOTE | 2024-03-27 13:07 | PCM.POSTANE2 ---
Anesthesia Postop Eval I Sum Postop Eval Completion status Anesthesia document: Postop Eval 1 completed: Yes Anesthesia Postop Eval I Summary Anesthesia Postop Eval I Summary: Anesthesia Postop Eval I: Assessment Summary Airway patent Yes 03/27/24 11:39 LAUNDRY OPERATOR WASH ROOM.HBARR Spontaneous unlabored Yes 03/27/24 11:39 LAUNDRY OPERATOR WASH ROOM.HBARR respirations Mental status Awake,Calm 03/27/24 11:39 LAUNDRY OPERATOR WASH ROOM.HBARR nausea No 03/27/24 11:39 LAUNDRY OPERATOR WASH ROOM.HBARR Vomiting No 03/27/24 11:39 LAUNDRY OPERATOR WASH ROOM.HBARR Anesthesia Postop Eval I: Fluid Summary Crystalloid volume administer 1,000 03/27/24 11:39 LAUNDRY OPERATOR WASH ROOM.HBARR (ml) Colloids volume administered ( ml) Blood Product volume administered (ml) Total IV fluid infused 1,000 03/27/24 11:39 LAUNDRY OPERATOR WASH ROOM.HBARR Anesthesia Postop Eval I: Summary Notes Anesthesia Complication No 03/27/24 11:39 LAUNDRY OPERATOR WASH ROOM.HBARR Anesthesia Complication Comment: Post-operative progress note Anesthesia: Postop Eval II Evaluation Mental status: Awake and Calm Pain Level: 1 nausea: No Vomiting: No Complications Anesthesia Complication: No
== END 2024-03-27 13:37 | disposition home or self-care (01) ==
LOC: SDC 08:49 → AC 08:50
PROVIDERS: Referring Provider Urology; Visit Provider Urology
PROC: (CPT 50590; principal; 2024-03-27 10:00)
DX: N13.2 Hydronephrosis with renal and ureteral calculous obstruction (principal)
CPT/HCPCS: 50590; 00873; 81025; J2405

== ENCOUNTER 2024-04-24 09:12 | Day surgery (SDC) | payer SELFPAY ==
[2024-04-24] VITALS (10 sets, daily range): BP systolic 98–121; BP diastolic 57–99; PULSE 71–91; RESP 16–18; TEMP 36.6–37.2; O2SAT 99–100; BMI 24.0
[2024-04-24 09:49] LABS: Internal QC Validated? YES +Cl - CLEAR BKGD; Pregnancy, Urine Negative Negative
[2024-04-24] MEDS: 0.9% Normal Saline (1000mL) 1,000 ML 15 ML IV (10:04)
--- NOTE | 2024-04-24 10:43 | PCM.PRE.AN2 ---
ASA Classification* ASA Classification ASA Classification: 1 Assessment & Plan Anesthesia* Anesthesia Assessment Anesthesia Assessment: Discussed sedation and/or anesthesia options, risks, benefits, and alternatives with patient/parents/legal guardian/POA. Questions invited. The patient/parents/legal guardian/POA seems to understand and agrees to proceed with anesthesia plan. Reviewed the physical assessment, medical history, allergy history and patient home medications list prior to surgery/procedure/anesthetic and documented any changes. Performed airway and anesthesia risk assessments. Anesthesia Type Anesthesia Type: General History Source History Obtained from:: Patient and Chart Anesthesia Focused Assessment* Temperature: 98.9 F Pulse Rate: 79 Blood Pressure: 98/57 Respiratory Rate: 18 Pulse Ox: 99 Oxygen Delivery Method: Room Air Airway Assessment Mouth opens: >3 cm Mallampati Score: II Teeth Condition: Caps/Crowns (Patient has a crown right lower molar. It is tight.) Neck Range of motion (ROM): Full ROM Focused Labs Anesthesia Preop lab: CBC WBC 7.7 K/mm3 (4.4-11.0) 03/07/24 17:39 03/07/24 RBC 3.64 M/mm3 (4.2-5.4) L 03/07/24 17:39 03/07/24 Hgb 11.0 g/dL (12.0-15.0) L 03/07/24 17:39 03/07/24 Hct 32.2 % (37-47) L 03/07/24 17:39 03/07/24 Plt Count 212 K/mm3 (150-450) 03/07/24 17:39 03/07/24 CHEMISTRY Potassium 4.2 mmol/L (3.5-5.1) 03/26/24 08:16 03/26/24 Sodium 137 mmol/L (136-145) 03/26/24 08:16 03/26/24 BUN 12 mg/dL (7-18) 03/26/24 08:16 03/26/24 Creatinine 0.82 mg/dL (0.55-1.02) 03/26/24 08:16 03/26/24 Glucose 94 mg/dL (74-106) 03/26/24 08:16 03/26/24 TSH 0.72 uIU/mL (0.358-3.74) 11/17/16 12:10 11/17/16 COAG Urine Test Negative Negative 04/24/24 09:33 04/24/24 Pre-Assessment Diagnosis/Proposed Procedure Planned Operative Procedure(s): (R) Cysto Right renal ESWL, Right Ureteral stent insertion, Possible Left stent removal Anesthesia History Anesthesia History - audio specialist: Anesthesia History - audio specialist Hx Hospitalization Yes: 03/08/2024 04/10/24 08:14 Any Problems With Anesthesia No 04/10/24 08:14 Cholinesterase deficiency No 04/10/24 08:14 You/Your Family Experience No 04/10/24 08:14 fever (hyperthermia) with Relationship Recent Exposure to Contagious No 04/24/24 09:56 Disease Does patient have nerve No 04/10/24 08:14 stimulator Patient instructed to have device shut off --Does patient have Pacemaker No 04/24/24 09:57 or ICD? When Was Last Pacemaker Check QUESTION #4 FULL TEXT: You/Your Family Experience fever (hyperthermia) with Anesthesia Last Oral Intake Last Oral intake: Last Oral Intake NPO since 21:00 04/24/24 09:57 Meds taken in AM with sips of No 04/24/24 09:57 water? Meds patient instructed to take am of surgery PONV PONV - audio specialist: PONV - audio specialist Female Yes 04/10/24 08:14 HX of Motion Sickness No 04/10/24 08:14 HX of N/V After Surgery No 04/10/24 08:14 Non-Smoker Yes 04/10/24 08:14 Duration of Surgery greater No 04/10/24 08:14 than 60 minutes Number of Risk Factors 2 04/10/24 08:14 PONV Score Moderate Risk 04/10/24 08:14 Height & Weight Height & Weight: Anesthesia: Height & Weight Height 5 ft 04/24/24 09:57 Weight: 55.792 kg 04/24/24 09:57 Body Mass Index (BMI) 24.0 04/24/24 09:57 Respiratory Assessment Respiratory Assessment - audio specialist: Respiratory Tract Infection Hx - audio specialist Hx Respiratory Tract Infection No 04/10/24 08:14 STOP Sleep Apnea STOP Sleep Apnea - audio specialist: STOP Sleep Apnea - audio specialist Hx Hypertension No 04/10/24 08:14 Hx Sleep Apnea No 04/10/24 08:14 CPAP BIPAP Do you snore loudly (louder No 04/10/24 08:14 than talking or can be heard Do you often feel tired/ No 04/10/24 08:14 fatigued/ sleepy during daytime? Has anyone observed you stop No 04/10/24 08:14 breathing during sleep? STOP Results Negative 04/10/24 08:14 QUESTION #5 FULL TEXT : Do you snore loudly (louder than talking or can be heard through closed doors)? Tobacco Use History Tobacco Use History - audio specialist: Tobacco Use History - audio specialist Tobacco Use Smoking Status Never smoker 04/10/24 08:14 Hx Tobacco Use No 04/10/24 08:14 Years Smoking Packs Smoked per Day Smoking Cessation Date was within the last 15 years Hx Smoking Cessation Date Hx Smoking Cessation Counseling Hematologic Medial History Hematologic Hx - audio specialist: Hematologic Medical Hx - exec. creative director Hx of Blood Transfusion Yes 04/10/24 08:14 Hx of Transfusion in last 3 No 04/10/24 08:14 Months Date of Last Transfusion (if within last 3 months) Ever experience any problems No 04/10/24 08:14 with transfusion(s)? Specify any problems Hx of Preganancy in last 3 No 04/10/24 08:14 Months Nurse Filling Out Transfusion VCHRISTIN 04/10/24 08:14 & Questions: Date: 04/10/24 04/10/24 08:14 Time: 08:15 04/10/24 08:14 Patient unable to answer at this time (ie. confused, unrespo /Reproduction History /Reproductive History - audio specialist: /Reproductive Hx- audio specialist Hx Now No 04/10/24 08:14 Gestational Age (in weeks): EDC: Hx Hx Para Hx Section SAB No 04/10/24 08:14 Active Medications Active Medications: Current Medications Generic Name Dose Route Start Last Admin Trade Name Freq PRN Reason Stop Dose Admin Cefazolin Sodium 2 gm/ N/A 20 mls @ 400 mls/hr 04/24/24 10:50 IV 04/24/24 10:52 PREOP ONE Sodium Chloride 1,000 mls @ 15 mls/hr 04/24/24 09:30 04/24/24 10:04 IV 15 mls/hr .Q48H KOBE Administration PFSH Medical History Wears glasses Anemia Non-smoker Home Medications ?Medication ?Instructions ?Recorded ?Last Taken ?Type acetaminophen 325 mg tablet 650 mg PO Q4H PRN pain 03/19/24 Unknown History (Tylenol) ibuprofen 600 mg tablet (IBU) 600 mg PO Q8H PRN pain 03/19/24 Unknown History potassium chloride 15 mEq 15 meq PO BID 03/24/24 Unknown History tablet,extended release(part/cryst) (Klor-Con M) Allergy/AdvReac Type Severity Reaction Status Date / Time No Known Allergies Allergy Verified 04/24/24 09:55 Surgical History History of cystoscopy Hx of cystoscopy Social History Smoking Status: Never smoker Review of Systems (Anesthesia) ROS Narrative System reviewed and no additional complaints, except as documented.
[2024-04-24] MEDS: Cefazolin 2 GM in Syringe IV (11:40)
--- NOTE | 2024-04-24 11:59 | EX.PCM.DISCH ---
Discharge Instructions Diet Discharge Diet: No restrictions Activity Discharge Activity: Return to Normal Activity Dressing / Incision Call your doctor if you observe: Fever of 101 or Higher, Inability to urinate and Inability to have a bowel movement Follow Up Care Please Follow Up With: Phuong Madrigal MD When: In the office in 2 to 3 weeks for a KUB and possible cystoscopy with stent removal. The office will call to make the appointment. Test Results: Test results from this visit will be discussed in further detail at your follow-up appointment, if applicable. Discharge Plan Admission Attending Provider: Phuong Madrigal Primary Care Provider: Tammi Romo Instructions Print Language: Ukrainian Discharge Orders/Prescriptions Prescriptions: New oxycodone-acetaminophen 5-325 mg tablet 1 tab PO Q8H PRN (Reason: pain) 3 Days Qty: 10 0RF cephalexin 500 mg capsule 500 mg PO Q12 3 Days Qty: 6 0RF Continued acetaminophen [Tylenol] 325 mg tablet 650 mg PO Q4H PRN (Reason: pain) ibuprofen [IBU] 600 mg tablet 600 mg PO Q8H PRN (Reason: pain) potassium chloride [Klor-Con M15] 15 mEq tablet,ER particles/crystals 15 meq PO BID Patient Comments: STARTED 03/19/24 Referrals / Follow Up: Tammi Romo PA [Primary Care Provider] - Disposition Disposition (needs filled in before D/C Order can be placed): Home, Self Care
--- NOTE | 2024-04-24 12:01 | OP.PCM_ITS ---
Operative Report (Standard) Operative Information Date of Procedure: 04/24/24 Pre-Operative Diagnosis: Bilateral renal stones Post-Operative Diagnosis: Same Surgery/Procedure Performed: Cystoscopy, left ureteral stent removal, right ureteral stent insertion, right renal extracorporal shockwave lithotripsy clinical research specialist: No Type of Anesthesia: General RN Documented Start/Stop Times: Operation Date: 04/24/24 10:50 Case Time Into Pre-Op 04/24/24 09:26 Out of Pre-Op 04/24/24 11:29 Anesthesia Start 04/24/24 11:33 Into Room 04/24/24 11:33 Procedure Start 04/24/24 11:47 Procedure Start Time: 11:47 Procedure Stop Time: 12:39 Select all DRAINS/GRAFTS/IMPLANTS that apply: Drains Drain details: 6 Cypriot by 20 cm JJ stent Estimated Blood Loss: <5cc Specimen collected: No Description of surgery: The patient is a 38-year-old female who had bilateral kidney stones. She already had left-sided lithotripsy with stent placement. She now presents for cystoscopy with right ureteral stent, right shockwave lithotripsy and left ureteral stent removal. Informed consent was obtained. She was taken to the operating room and placed on the lithotripsy table. Anesthesia monitored the head, neck, airway, IV access and vital signs throughout the case. Once anesthesia was appropriately administered she was placed into dorsolithotomy po sition and was prepped and draped in usual sterile fashion. The cystoscope was inserted through the urethra under direct visualization into the urinary bladder. The left ureteral stent was observed. The kidney was visualized and all along the left ureteral stent and there was no evidence of significant stone burden remaining. The decision was made to remove the left ureteral stent. This was done with grasping forceps without difficulty. A 0.035 Glidewire was then utilized to intubate the right ureteral orifice and was advanced into the renal pelvis as seen on fluoroscopy. A 6 Cypriot 20 cm JJ stent was then placed over the wire with good positioning in the renal pelvis. The patient's bladder was emptied and the cystoscope was removed. She was repositioned on the table and the stones were visualized. A total of 3000 shocks were applied to her stone fragments which appeared to be well broken at the conclusion of the case. There were no complications during this procedure. The patient was awakened and taken to the recovery room in good condition. Surgical Findings: Right sided multiple stones seen and fragmented Complications Complications: No Admit VTE Documentation VTE Present on Admission: Yes VTE Mechan Device Prophylaxis: SCD's VTE Pharm Prophylaxis ordered?: No Reason prophylaxis not ordered: Treatment Not Indicated
--- NOTE | 2024-04-24 12:58 | PCM.POST.ANE ---
Anesthesia: Postop Eval I Current Vital Signs Temperature: 97.8 F Pulse Rate: 78 Blood Pressure: 121/99 Respiratory Rate: 16 Pulse Ox: 100 Oxygen Delivery Method: Room Air Assessment Airway patent: Yes Spontaneous unlabored respirations: Yes Mental status: Awake and Calm nausea: No Vomiting: No Anesthesia Complication: No Fluid Hydration Crystalloid volume administer (ml): 600 Total IV fluid infused: 600 Progress Note Anesthesia document: Postop Eval 1 completed: Yes
--- NOTE | 2024-04-24 14:21 | POSTOPAN2_ITS ---
Anesthesia Postop Eval I Sum Postop Eval Completion status Anesthesia document: Postop Eval 1 completed: Yes Anesthesia Postop Eval I Summary Anesthesia Postop Eval I Summary: Anesthesia Postop Eval I: Assessment Summary Airway patent Yes 04/24/24 12:58 CARE TRANSITION [email or web address] Spontaneous unlabored Yes 04/24/24 12:58 CARE TRANSITION [email or web address] respirations Mental status Awake,Calm 04/24/24 12:58 CARE TRANSITION [email or web address] nausea No 04/24/24 12:58 CARE TRANSITION MANAGER.[email or web address] Vomiting No 04/24/24 12:58 CARE TRANSITION MANAGER.[email or web address] Anesthesia Postop Eval I: Fluid Summary Crystalloid volume administer 600 04/24/24 12:58 CARE TRANSITION [email or web address] (ml) Colloids volume administered ( ml) Blood Product volume administered (ml) Total IV fluid infused 600 04/24/24 12:58 CARE TRANSITION [email or web address] Anesthesia Postop Eval I: Summary Notes Anesthesia Complication No 04/24/24 12:58 CARE TRANSITION [email or web address] Anesthesia Complication Comment: Post-operative progress note Anesthesia: Postop Eval II Evaluation Mental status: Awake Pain Level: 1 nausea: No Vomiting: No
--- NOTE | 2024-04-24 14:21 | PCM.POSTANE2 ---
Anesthesia Postop Eval I Sum Postop Eval Completion status Anesthesia document: Postop Eval 1 completed: Yes Anesthesia Postop Eval I Summary Anesthesia Postop Eval I Summary: Anesthesia Postop Eval I: Assessment Summary Airway patent Yes 04/24/24 12:58 [email or web address] Spontaneous unlabored Yes 04/24/24 12:58 PRIVATE [email or web address] respirations Mental status Awake,Calm 04/24/24 12:58 [email or web address] nausea No 04/24/24 12:58 PRIVATE [email or web address] Vomiting No 04/24/24 12:58 PRIVATE [email or web address] Anesthesia Postop Eval I: Fluid Summary Crystalloid volume administer 600 04/24/24 12:58 PRIVATE [email or web address] (ml) Colloids volume administered ( ml) Blood Product volume administered (ml) Total IV fluid infused 600 04/24/24 12:58 PRIVATE [email or web address] Anesthesia Postop Eval I: Summary Notes Anesthesia Complication No 04/24/24 12:58 PRIVATE [email or web address] Anesthesia Complication Comment: Post-operative progress note Anesthesia: Postop Eval II Evaluation Mental status: Awake Pain Level: 1 nausea: No Vomiting: No
--- NOTE | 2024-04-24 15:51 | HP.PCM_ITS ---
HPI - General General Date of Admission: 04/24/24 Date of Service: 04/24/24 Chief Complaint: Bilateral kidney stones HPI Narrative AMAURY MORALES, is a 38 F who presents for cystoscopy with left ureteral stent removal, right ureteral stent insertion with right renal extracorporeal shockwave lithotripsy. The procedure was discussed, informed consent was obtained and all questions were answered. She has not passed a significant amount of debris that she is aware of. She is not currently having any discomfort. PFSH Medical History Kidney stone Wears glasses Anemia Non-smoker Home Medications ?Medication ?Instructions ?Recorded ?Last Taken ?Type acetaminophen 325 mg tablet 650 mg PO Q4H PRN pain 01/29 Unknown History (Tylenol) ibuprofen 600 mg tablet (IBU) 600 mg PO Q8H PRN pain 0 03/19/24 Unknown History potassium chloride 15 mEq 15 meq PO BID 03/24/24 Unkno wn History tablet,extended release(part/cryst) (Klor-Con M) cephalexin 500 mg capsule 500 mg PO Q12 post-operative 3 04/24/24 Unknown Rx days #6 CAPSULES oxycodone-acetaminophen 5 mg-325 1 tab PO Q8H PRN pain 3 days #10 04/24/24 U nknown Rx mg tablet tabs Allergy/AdvReac Type Severity Reaction Status Date / Time No Known Allergies Allergy Verified 04/24/24 09:55 Surgical History History of cystoscopy Hx of cystoscopy Social History Smoking Status: Never smoker ROS Constitutional Constitutional: Reports systems reviewed and no addt'l complaints, except as documented; Denies chills, fatigue or fever(s) Eyes Eyes: Reports systems reviewed and no addt'l complaints, except as documented ENT HEENT: Reports systems reviewed and no addt'l complaints, except as documented Cardiovascular Cardiovascular: Denies abdominal pain, chest pain, dizziness, nausea or vomiting Respiratory/Chest Respiratory/Chest: Reports systems reviewed and no addt'l complaints, except as documented; Denies cough or dyspnea Gastrointestinal Gastrointestinal: Reports systems reviewed and no addt'l complaints, except as documented; Denies abdominal pain, nausea or vomiting Genitourinary Genitourinary: Reports urinary frequency and urinary urgency; Denies difficulty urinating or hematuria Musculoskeletal Musculoskeletal: Reports systems reviewed and no addt'l complaints, except as documented Integumentary Integumentary: Reports systems reviewed and no addt'l complaints, except as documented Neurologic Neurologic: Reports systems reviewed and no addt'l complaints, except as documented Psychiatric Psychiatric: Reports systems reviewed and no addt'l complaints, except as documented Endocrine Endocrinology: Reports systems reviewed and no addt'l complaints, except as documented Hematologic/Lymphatic Hematologic/Lymphatic: Reports systems reviewed and no addt'l complaints, except as documented Allergic/Immunologic Allergic/Immunologic: Reports systems reviewed and no addt'l complaints, except as documented Vital Signs Vital Signs Vital Signs: 04/24/24 09:56 04/24/24 09:57 04/24/24 10:48 Temperature 98.9 F 98.9 F Temperature Source Temporal Pulse Rate 79 79 Respiratory Rate 18 18 Respiratory Pattern Normal Blood Pressure 98/57 L 98/57 L Blood Pressure Mean 70 Blood Pressure Source Monitor Blood Pressure Position Semi-Fowlers Blood Pressure Location Right Arm Baseline BP Pulse Ox 99 99 Oxygen Delivery Method Room Air Room Air 04/24/24 12:52 04/24/24 12:55 04/24/24 12:58 Temperature 97.8 F 97.8 F Temperature Source Temporal Pulse Rate 81 91 78 Respiratory Rate 16 16 16 Respiratory Pattern Normal Blood Pressure 121/99 H 109/76 121/99 H Blood Pressure Mean 106 87 Blood Pressure Source Monitor Monitor Blood Pressure Position Semi-Fowlers Supine Blood Pressure Location Right Arm Baseline BP 98/57 98/57 Pulse Ox 100 100 100 Oxygen Delivery Method Room Air Room Air Room Air 04/24/24 13:00 04/24/24 13:15 04/24/24 13:30 Temperature Temperature Source Pulse Rate 74 71 71 Respiratory Rate 16 16 16 Respiratory Pattern Blood Pressure 119/67 118/73 116/70 Blood Pressure Mean 84 88 85 Blood Pressure Source Monitor Monitor Monitor Blood Pressure Position Semi-Fowlers Semi-Fowlers Semi-Fowlers Blood Pressure Location Right Arm Right Arm Right Arm Baseline BP 98/57 98/57 98/57 Pulse Ox 100 100 100 Oxygen Delivery Method Room Air Room Air Room Air 04/24/24 13:49 04/24/24 14:10 04/24/24 14:48 Temperature 98.2 F 98.5 F Temperature Source Temporal Temporal Pulse Rate 73 73 Respiratory Rate 16 18 Respiratory Pattern Normal Blood Pressure 112/67 119/70 Blood Pressure Mean 82 86 Blood Pressure Source Monitor Monitor Blood Pressure Position Semi-Fowlers Semi-Fowlers Blood Pressure Location Right Arm Left Arm Baseline BP 98/57 98/57 Pulse Ox 100 99 Oxygen Delivery Method Room Air Room Air Weight Weight: 55.792 kg Body Mass Index (BMI) 24.0 Physical Exam Const alert, oriented x3 and no apparent distress General Appearance: cooperative, comfortable and well kempt HEENT normocephalic, head/scalp atraumatic, hearing grossly normal bilaterally, external ears normal, external nose normal and moist oral mucous membranes Eyes General Eye: normal appearance of both eyes Neck supple General: normal visual inspection and trachea midline Lymph Lymphatic: no lymphedema noted Chest inspection of chest normal Chest: symmetrical chest wall rise Resp normal respiratory effort and normal air movement Effort and Inspection: able to speak in complete sentences Cardio regular rate GI soft to palpation, non-tender and non-distended no CVA tenderness Back/Spine no CVA tenderness Extremity normal to inspection Skin no rashes or lesions noted, no jaundice, no petechiae and no mottling Neuro oriented x3, CN's II-XII intact bilaterally and moves all extremities Psych mental status grossly normal, thought process normal and cooperative Results Lab / Micro Data Labs: Laboratory Results - last 24 hr 04/24/24 09:33: Urine Test Negative Assessment & Plan Assessment/Plan (1) Kidney stone: PLAN: Plan Proceed with intervention as scheduled Negative preop culture of the urine
== END 2024-04-24 15:02 | disposition home or self-care (01) ==
LOC: SDC 09:15 → AC 09:18
PROVIDERS: Referring Provider Urology; Visit Provider Urology
PROC: (CPT 50590; principal; 2024-04-24 10:40)
DX: N20.0 Calculus of kidney (principal)
CPT/HCPCS: 52310; 52332; 50590; 00910; 81025; C1769; C2617; J2405

== ENCOUNTER → 2024-05-14 | Outpatient (CLI) | payer SELFPAY ==
--- NOTE | 2024-05-14 10:38 | RAD_ITS ---
PROCEDURE: ABDOMEN SINGLE VIEW 05/14/2024 REASON FOR EXAM: KUB- KIDNEY STONES TECHNIQUE: Single view abdomen. COMPARISON: CT abdomen pelvis 03/05/2024. FINDINGS: Bowel gas: Bowel gas pattern is normal. No evidence of bowel obstruction. Calcifications: Tiny radiopaque densities overlying the expected regions of the bilateral kidneys. No large calcific density visualized. Pelvic phleboliths. Bones: The bones are unremarkable. Other: Interval right double-J ureteral stent placement. Stable hepatomegaly. RAD/Abdomen Single View IMPRESSION: Tiny radiopaque densities overlying the expected regions of the bilateral kidne ys. No large calcific density visualized. Reading Location: [id number]
== END | disposition home or self-care (01) ==
PROVIDERS: Referring Provider Urology; Visit Provider Urology
DX: N20.0 Calculus of kidney (principal)
CPT/HCPCS: 74018

== ENCOUNTER → 2024-06-24 | Outpatient (CLI) | payer SELFPAY ==
[2024-06-24 12:51] LABS: Calcium 9.4 mg/dL (7.6-11.0)
== END | disposition home or self-care (01) ==
LOC: MTLAB 09:31
PROVIDERS: Referring Provider Urology; Visit Provider Urology
DX: N20.0 Calculus of kidney (principal)
CPT/HCPCS: 36415; 82310